=== PATIENT | female | born 1960 | race African-American/Black ===

== ENCOUNTER 2016-04-17 09:10 | Outpatient (CLI) | END 2016-04-17 09:11 | disposition home or self-care (01) ==

== ENCOUNTER 2016-04-29 11:21 | Emergency (ER) | payer OTHER ==
[2016-04-29] MEDS ORDERED: MAG HYDROX/AL HYDROX/SIMETH 30 ML UDC PO STA (12:34)
[2016-04-29] MEDS ORDERED: LIDOCAINE VISCOUS 2% 15 ML UDC MM STA (12:34)
[2016-04-29] MEDS ORDERED: MAG HYDROX/AL HYDROX/SIMETH 30 ML UDC ONE (12:37)
[2016-04-29] MEDS ORDERED: LIDOCAINE VISCOUS 2% 15 ML UDC MM ONE (12:37)
[2016-04-29] MEDS ORDERED: diltiaZEM 30 MG TABLET PO STA (12:58)
[2016-04-29] MEDS ORDERED: diltiaZEM 30 MG TABLET PO ONE (13:22)
== END 2016-04-29 14:42 | disposition home or self-care (01) ==
DX: R07.89 Other chest pain (principal); K21.9 Gastro-esophageal reflux disease without esophagitis; Z85.3 Personal history of malignant neoplasm of breast
CPT/HCPCS: 36415; 71020; 80053; 83690; 84484; 85025; 85379; 93005; 93010; 99283; 99284; A9270

== ENCOUNTER 2016-12-14 14:48 | Outpatient (CLI) | payer OTHER ==
--- NOTE | 2016-12-14 21:50 | MRI Report ---
EXAM: MRI BRAIN WITHOUT CONTRAST EXAM DATE: 12/14/2016 03:59 PM. CLINICAL HISTORY: 56-year-old woman with headache and hypertension. COMPARISON: 05/06/2009. TECHNIQUE: Multiplanar, multisequence T1-weighted and fluid-sensitive MR sequences of the brain were performed. Sequences optimized for routine evaluation. Other: None. IV Contrast: None. FINDINGS: Parenchyma: No evidence of acute infarct on diffusion weighted sequence. The parenchyma demonstrates several punctate foci of nonspecific FLAIR hyperintensity in the deep cerebral white matter, similar to the 2009 exam and a common finding in this age group. No evidence of prior hemorrhage on susceptib ility weighted sequence. Pituitary: Unremarkable. Ventricles and Extra-axial Spaces: Ventricles are symmetric and normal in size for age. Extra-axial s paces are unremarkable. Orbits: Unremarkable. Sinuses: Paranasal sinuses and mastoid air cells are clear. Major Vascular Flow Voids: Intact. IMPRESSION: 1. No acute intracranial abnormality. Specifically, no evidence of acute infarct, hemorrhage, or mass lesion. 2. Minimal white matter changes, similar to the 05/06/2009 exam and a common finding in this age grou p. Findings may reflect sequelae of chronic small vessel ischemic disease or history of headaches. [facility] Referring Provider Line: [phone] SITE ID: [id number]
== END 2016-12-14 14:49 | disposition home or self-care (01) ==
LOC: DI 14:48
PROVIDERS: ATTEND Registered Nurse Diabetes Educator
DX: R51 Headache (principal); Z85.3 Personal history of malignant neoplasm of breast
CPT/HCPCS: 70551

== ENCOUNTER 2017-01-20 07:06 | Emergency (ER) | payer OTHER ==
[2017-01-20] MEDS ORDERED: SODIUM CHLORIDE FLUSH 0.9% 10 ML SYRINGE IVP ONE (07:17)
[2017-01-20 07:26] LABS: BASOPHILS % (AUTO) 0.8 %; EOSINOPHILS # (AUTO) 0.1 10^3/uL (0.0-0.7); EOSINOPHILS % (AUTO) 2.2 %; HCT - HEMATOCRIT 37.2 % (37.0-47.0); HGB - HEMOGLOBIN 12.6 g/dL (12.0-16.0); LYMPHOCYTES # (AUTO) 1.3 10^3/uL (1.5-3.5); MEAN CORPUSCULAR HEMOGLOBIN 29.6 pg (27.0-31.0); MEAN CORPUSCULAR HGB CONC 33.7 g/dL (32.0-36.0); MEAN CORPUSCULAR VOLUME 87.7 fL (81.0-99.0); MONOCYTES # (AUTO) 0.4 10^3/uL (0.0-1.0); MONOCYTES % (AUTO) 11.1 %; NEUTROPHILS # (AUTO) 1.5 10^3/uL (1.5-6.6); NEUTROPHILS % (AUTO) 46.9 %; RED BLOOD COUNT 4.24 10^6/uL (4.20-5.40); RED CELL DISTRIBUTION WIDTH 13.3 % (12.0-15.0); UNCORRECTED WHITE BLOOD COUNT 3.2 x10^3/uL; WHITE BLOOD COUNT 3.2 x10^3/uL (4.8-10.8)
[2017-01-20] MEDS ORDERED: ASPIRIN CHEW 81 MG TABLET ONE (07:26)
[2017-01-20] MEDS ORDERED: SODIUM CHLORIDE 0.9% 1,000 ML IV ONE (07:26)
[2017-01-20] MEDS ORDERED: ASPIRIN CHEW 81 MG TABLET PO STA (07:26)
[2017-01-20] MEDS ORDERED: NITROGLYCERIN SL 0.4 MG TABLET SL STA (07:27)
--- NOTE | 2017-01-20 07:30 | ED Physician Documentation ---
History of Present Illness - Stated complaint Stated Complaint: CHEST PAIN - Chief complaint Chief Complaint: Cardiac - Additonal information Additional information: hx from pt 57 f pmhx HTN lipids DM and fhx CAD to ER today with waxing and waning cp for 4 days described as a pressure to ant chest rad to back and right arm, associated soa nausea sweats tingling legs too has had one prior cath at [facility] which was reportedly normal presently 09/22 Review of Systems Constitutional: reports: Sweats. denies: Fever, Chills Cardiac: reports: Chest pain / pressure Respiratory: denies: Dyspnea GI: reports: Nausea. 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: Endometriosis, Fibroids, 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 - Past Surgical History Past Surgical History: Yes /MARKETING SERVICES VICE PRESIDENT: Tubal ligation, Hysterectomy, Mastectomy - Present Medications Home Medications: Ambulatory Orders Medication Instructions Recorded Confirmed No Known Home Medications [No 01/20/17 01/20/17 Known Home Medications] - Allergies Allergies/Adverse Reactions: Allergies Allergy/AdvReac Type Severity Reaction Status Date / Time No Known Drug Allergies Allergy Verified 01/20/17 07:14 - Social History Does the pt smoke?: No Smoking Status: Never smoker Does the pt drink ETOH?: Yes Does the pt have substance abuse?: No - Immunizations Immunizations are current?: Yes - POLST Patient has POLST: No PD ED PE NORMAL - Vitals Vital signs reviewed: Yes - General General: Alert and oriented X 3 - HEENT HEENT: PERRL - Neck Neck: Supple, no meningeal sign - Cardiac Cardiac: RRR - Respiratory Respiratory: No respiratory distress, Clear bilaterally - Abdomen Abdomen: Soft, Non tender - Derm Derm: Normal color - Extremities Extremities: No deformity, Normal ROM s pain, No edema - Neuro Neuro: Alert and oriented X 3 Results - Vitals Vitals: Vital Signs - 24 hr 01/20/17 07:11 Temperature 36.5 C Heart Rate 69 Respiratory 16 Rate Blood Pressure 136/82 H O2 Saturation 98 Oxygen O2 Source Room air - EKG (time done) 0714 Rate: Rate (enter#) Rhythm: NSR [place]: Normal Intervals: Normal SD Ischemia: ST elevation c/w ischemia (V1 and ronnie V2 V3) Compare to prior EKG: Changed from prior EKG (changed from Apr 2016, sig diff from her prior LVH / repol patter - will send old EKG to [facility] as well) - Labs Labs: Laboratory Tests 01/20/17 01/20/17 01/20/17 07:18 07:18 07:18 WBC 3.2 L RBC 4.24 Hgb 12.6 Hct 37.2 MCV 87.7 MCH 29.6 MCHC 33.7 RDW 13.3 Plt Count 167 MPV 8.0 Neut # 1.5 Lymph # 1.3 L [place] # 0.4 Eos # 0.1 Baso # 0.0 Absolute Nucleated RBC 0.00 Nucleated RBC % 0.0 Sodium 138 Potassium 3.4 L Chloride 103 Carbon Dioxide 25 Anion Gap 10.0 BUN 17 Creatinine 0.8 Estimated GFR (MDRD) 90 Glucose 114 H Calcium 8.9 Total Bilirubin 1.2 H AST 23 ALT 18 Alkaline Phosphatase 50 Troponin I < 0.04 Total Protein 7.1 Albumin 4.0 Globulin 3.1 Albumin/Globulin Ratio 1.3 Lipase 20 L PD MEDICAL DECISION MAKING - ED course ED course: STEMI protocol activated spoke to [facility] ER Dr Castillo and cardio Dr Ford gave asa nitro heparin per Dr Ford no lopressor for ant STEMI and no plavix labs pending at time of dc, CXR ordered but did not get done prior to EMS arriving for transfer Departure - Departure Disposition: 02 Transfer Acute Care Hosp Clinical Impression: STEMI (ST elevation myocardial infarction) Qualifiers: Involved coronary artery: unspecified coronary artery Qualified Code(s): I21.3 - ST elevation (STEMI) myocardial infarction of unspecified site
[2017-01-20] MEDS ORDERED: HEPARIN 5,000 UNIT/ML VIAL ONE (07:32)
[2017-01-20] MEDS ORDERED: HEPARIN 25000UNITS/500ML (D5W) 25,000 UNIT/500 ML BAG IV ONE (07:32)
[2017-01-20] MEDS ORDERED: HEPARIN 25000UNITS/500ML (D5W) 25,000 UNIT/500 ML BAG IV STA (07:33)
[2017-01-20] MEDS ORDERED: HEPARIN 5,000 UNIT/ML VIAL IVP STA (07:33)
[2017-01-20] MEDS ORDERED: NITROGLYCERIN SL 0.4 MG TABLET SL ONE (07:38)
[2017-01-20 07:40] LABS: ALBUMIN/GLOBULIN RATIO 1.3 (1.0-2.2); BILIRUBIN,TOTAL 1.2 mg/dL (0.2-1.0); CALCIUM 8.9 mg/dL (8.5-10.3); CREATININE 0.8 mg/dL (0.4-1.0); POTASSIUM 3.4 mmol/L (3.5-5.0); TOTAL PROTEIN 7.1 g/dL (6.7-8.2)
[2017-01-20 08:16] VITALS: BP 148/75
== END 2017-01-20 07:34 | disposition short-term general hospital (02) ==
LOC: ED 07:06
DX: I21.3 ST elevation (STEMI) myocardial infarction of unspecified site (principal); I10 Essential (primary) hypertension; Z82.49 Family history of ischemic heart disease and other diseases of the circulatory system; E78.5 Hyperlipidemia, unspecified; K21.9 Gastro-esophageal reflux disease without esophagitis; Z85.3 Personal history of malignant neoplasm of breast; Z90.10 Acquired absence of unspecified breast and nipple; Z87.42 Personal history of other diseases of the female genital tract
CPT/HCPCS: 36415; 80053; 83690; 84484; 85025; 93005; 96374; 96376; 99284; A9270

== ENCOUNTER 2017-01-20 07:47 | Outpatient (CLI) | payer OTHER | END 2017-01-20 07:48 | disposition short-term general hospital (02) | LOC: EMS 07:47 | PROVIDERS: ATTEND Surgery | DX: R07.9 Chest pain, unspecified (principal); R51 Headache | CPT/HCPCS: A0425; A0426 ==

== ENCOUNTER 2017-04-02 10:28 | Outpatient (CLI) | payer OTHER ==
--- NOTE | 2017-04-02 12:01 | Ultrasound Report ---
EXAM: ABDOMEN ULTRASOUND LIMITED, RUQ EXAM DATE: 04/02/2017 11:25 AM. CLINICAL HISTORY: EPIGASTRIC PAIN, ELEVATED BILLIRUBIN. COMPARISON: Abdominal ultrasound 02/05/2016. TECHNIQUE: Real-time scanning was performed with static images obtained. FINDINGS: Liver: Normal in size and echotexture. 14.1 cm. Main portal vein flow: Hepatopetal. Gallbladder: Normal. No stones, wall thickening, or sonographic Del Cid's sign. Biliary System: CBD measures 2 mm. No intrahepatic or extrahepatic ductal dilatation. Other: None. IMPRESSION: Normal. No cholelithiasis or cholecystitis. [facility] Referring Provider Line: [phone] SITE ID: [id number]
== END 2017-04-02 10:29 | disposition home or self-care (01) ==
LOC: DI 10:28
PROVIDERS: ATTEND Nurse Anesthetist, Certified Registered
DX: R10.13 Epigastric pain (principal); R17 Unspecified jaundice
CPT/HCPCS: 76705

== ENCOUNTER 2017-06-13 08:47 | Outpatient (CLI) | payer OTHER ==
--- NOTE | 2017-06-13 16:07 | Nuclear Medicine Report ---
EXAM: BONE SCAN EXAM DATE: 06/13/2017 03:01 PM. CLINICAL HISTORY: MALIGNANT NEOPLASM OF UNSPECIFIED SITE. History of breast cancer. New spine pain mo st notably mid thoracic region. COMPARISON: CT abdomen/pelvis 11/05/2015. TECHNIQUE: Following the intravenous administration of 31.6 mCi of technetium 99m MDP and an appropri ate delay, a whole-body scan was performed in anterior and posterior projections. Site-specific spot views of the region of interest were obtained in various projections. FINDINGS: Normal renal radiotracer uptake and bladder activity. Normal soft tissue activity. Overall normal osseous uptake. No suspicious focal uptake. IMPRESSION: 1. No convincing scintigraphic evidence of osseous metastasis. [facility] Referring Provider Line: [phone] SITE ID: [id number]
== END 2017-06-13 08:48 | disposition home or self-care (01) ==
LOC: DI 08:47
PROVIDERS: ATTEND Registered Nurse Diabetes Educator
DX: M54.6 Pain in thoracic spine (principal); Z85.3 Personal history of malignant neoplasm of breast
CPT/HCPCS: 78306; A9503

== ENCOUNTER 2017-06-26 10:49 | Outpatient (CLI) | payer OTHER ==
[2017-06-26] MEDS ORDERED: SINCALIDE 5 MCG VIAL ONE (12:11)
[2017-06-26] MEDS ORDERED: SINCALIDE 1.3 MCG in SODIUM CHLORIDE 0.9% 50 ML IV ONE (14:11)
--- NOTE | 2017-06-26 16:24 | Nuclear Medicine Report ---
EXAM: HEPATOBILIARY SCAN WITH CCK/KINEVAC ADMINISTRATION EXAM DATE: 06/26/2017 11:25 AM. CLINICAL HISTORY: EPIGASTRIC PAIN. COMPARISON: 04/02/2017. TECHNIQUE: Following the intravenous administration of 5.4 mCi of Tc99m Mebrofenin, a hepatobiliary s can was done centered on the liver and gallbladder in multiple sequential images and projections. Following the intravenous administration of 1.3 mcg of CCK/ Kinevac over the course of approximately 60 minutes, dynamic imaging was done and the gallbladder ejection fraction was calculated. FINDINGS: Normal extraction of tracer from the blood pool indicating normal hepatocellular function. The liver size and shape is grossly within normal limits. There is activity visualized within the bile ducts, gallbladder, and small bowel within the first vickie r. With CCK administration, the gallbladder demonstrates an effective contraction. The gallbladder eject ion fraction is calculated to be 78%, well above the lower limit of normal of 38% for a 60-minute inj ection. Positive for enterogastric bile reflux. IMPRESSION: 1. Patent cystic duct. 2. Patent common bile duct. 3. Negative for acute or chronic cholecystitis. 4. Positive for enterogastric bile reflux. 5. Gallbladder ejection fraction of 78%. [facility] Referring Provider Line: [phone] SITE ID: [id number]
== END 2017-06-26 10:50 | disposition home or self-care (01) ==
LOC: DI 10:49
PROVIDERS: ATTEND Nurse Anesthetist, Certified Registered
DX: K31.89 Other diseases of stomach and duodenum (principal)
CPT/HCPCS: 78227; A9537; J7040

== ENCOUNTER 2017-07-11 09:10 | Day surgery (SDC) | payer OTHER ==
[~2017-07-11 09:10] MED LIST: MIDAZOLAM 2 MG/2 ML VIAL IVP ONE; fentaNYL 250 MCG/5 ML VIAL IVP ONE
[2017-07-11] MEDS ORDERED: LACTATED RINGERS 1,000 ML IV ONE (09:21)
--- NOTE | 2017-07-11 10:28 | HISTORY & PHYSICAL EXAMINATION ---
HPI - History of Present Illness HPI Comment/Other: Patient is here for colonoscopy for rectal bleeding. Current Meds: HYDROCHLOROTHIAZIDE 12.5 MG ORAL CAPSULE (HYDROCHLOROTHIAZIDE) Take one tablet by mouth every morning Past Medical History: Reviewed history and no changes required: Chest Pain Heart murmur HTN Hyperlipidemia Sleep Apnea CPAP Machine Heartburn Acid Reflux Cancer Past Surgical History: Reviewed history and no changes required: Bilateral Mastectomy 2007 Tubal ligation 2003 Hysterectomy 2004 Family History Summary: Reviewed history and no changes required: 06/11/2017 Social History: Reviewed history and no changes required: Risk Factors: Smoked Tobacco Use: Never smoker Drug use: no Alcohol use: yes Type: wine Drinks per day: <1 Exercise: yes Times per week: 7 Type of Exercise: walking Problems were reviewed with the patient during this visit. Medications were reviewed with the patient during this visit. Allergies were reviewed with the patient during this visit. Allergies: * FLUORQUINOLINE (Critical) CIPRO (Critical) * LEVOFLICAN FLOURIDE (Critical) Physical Exam General: well developed, well nourished, in no acute distress Lungs: clear bilaterally to A & P Heart: regular rate and rhythm, S1, S2 without murmurs, rubs, gallops, or clicks Abdomen: bowel sounds positive; abdomen soft and non-tender without masses, organomegaly, or hernias noted Pulses: pulses normal in all 4 extremities Extremities: no clubbing, cyanosis, edema, or deformity noted with normal full range of motion of all joints Cervical Nodes: no significant adenopathy Psych: alert and cooperative; normal mood and affect; normal attention span and concentration Impression & Recommendations: Problem # 1: Rectal bleeding Improved since patient last seen in office. Will proceed with colonoscopy. 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: positive: Endometriosis, Fibroids, 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 MRSA Hx?: No - Past Surgical History /GAME TESTER: positive: Tubal ligation, Hysterectomy, Mastectomy Social & Family Hx - Social History Does the pt smoke?: No Smoking Status: Never smoker Does the pt drink ETOH?: Yes Does the pt have substance abuse?: No - POLST Patient has POLST: No Meds/Allgy - Home Medications Home Medications: Ambulatory Orders Medication Instructions Recorded Confirmed hydroCHLOROthiazide [Hydrodiuril] 12.5 mg PO DAILY 07/11/17 07/11/17 - Allergies Allergies/Adverse Reactions: Allergies Allergy/AdvReac Type Severity Reaction Status Date / Time ciprofloxacin [From Cipro] Allergy Anaphylaxis Verified 07/11/17 09:48 levofloxacin Allergy Anaphylaxis Verified 07/11/17 09:49 Exam - Vital Signs Vital Signs: Vital Signs x48h Temp Pulse Resp BP Pulse Ox 07/11/17 09:27 36.6 C 76 16 143/85 H 96
[2017-07-11] MEDS ORDERED: fentaNYL 250 MCG/5 ML VIAL IVP ONE (10:33)
[2017-07-11] MEDS ORDERED: MIDAZOLAM 2 MG/2 ML VIAL IVP ONE (10:33)
[2017-07-11 10:55] VITALS: BP 113/63
== END 2017-07-11 09:11 | disposition home or self-care (01) ==
LOC: SDS 09:10
PROVIDERS: ATTEND Surgery
PROC: 0DJD8ZZ Inspection of Lower Intestinal Tract, Via Natural or Artificial Opening Endoscopic (ICD-10-PCS; principal; 2017-07-11 10:15)
DX: K92.1 Melena (principal); K64.4 Residual hemorrhoidal skin tags; K64.8 Other hemorrhoids; I10 Essential (primary) hypertension
CPT/HCPCS: 45378; J3010; J7120

== ENCOUNTER 2017-12-06 01:03 | Emergency (ER) | payer OTHER ==
[2017-12-06 01:31] LABS: BASOPHILS % (AUTO) 0.6 %; EOSINOPHILS # (AUTO) 0.1 10^3/uL (0.0-0.7); EOSINOPHILS % (AUTO) 1.7 %; HGB - HEMOGLOBIN 13.4 g/dL (12.0-16.0); LYMPHOCYTES # (AUTO) 1.8 10^3/uL (1.5-3.5); LYMPHOCYTES % (AUTO) 38.2 %; MEAN CORPUSCULAR HEMOGLOBIN 30.3 pg (27.0-31.0); MEAN CORPUSCULAR HGB CONC 34.9 g/dL (32.0-36.0); MEAN CORPUSCULAR VOLUME 86.9 fL (81.0-99.0); MEAN PLATELET VOLUME 7.8 fL (7.9-10.8); MONOCYTES # (AUTO) 0.5 10^3/uL (0.0-1.0); MONOCYTES % (AUTO) 11.2 %; NEUTROPHILS # (AUTO) 2.2 10^3/uL (1.5-6.6); NEUTROPHILS % (AUTO) 48.3 %; PLT - PLATELET COUNT 196 10^3/uL (130-450); RED BLOOD COUNT 4.43 10^6/uL (4.20-5.40); WHITE BLOOD COUNT 4.6 x10^3/uL (4.8-10.8)
[2017-12-06 01:40] LABS: ALBUMIN 4.1 g/dL (3.2-5.5); ALBUMIN/GLOBULIN RATIO 1.2 (1.0-2.2); BILIRUBIN,TOTAL 1.3 mg/dL (0.2-1.0); CALCIUM 9.4 mg/dL (8.5-10.3); CREATININE 0.8 mg/dL (0.4-1.0); TOTAL PROTEIN 7.4 g/dL (6.7-8.2)
--- NOTE | 2017-12-06 02:02 | XRAY Report ---
Reason: chest pain Procedure Date: 12/06/2017 Accession Number: [id number] / [id number] Procedure: XR - Chest 1 View X-Ray CPT Code: 32849 FULL RESULT: EXAM: CHEST RADIOGRAPHY EXAM DATE: 12/06/2017 01:35 AM. CLINICAL HISTORY: COMPARISON: CHEST 2 VIEW PA/LAT 04/29/2016. TECHNIQUE: 1 view. FINDINGS: Lungs/Pleura: No focal opacities evident. No pleural effusion. No pneumothorax. Mediastinum: Within exam limitations, the cardiomediastinal contour is normal. Other: None. IMPRESSION: Normal single view chest. [facility]
--- NOTE | 2017-12-06 02:49 | ED Physician Documentation ---
History of Present Illness - Stated complaint Stated Complaint: CP/NAUSEA/RAYO - Chief complaint Chief Complaint: Cardiac - History obtained from History obtained from: Patient - History of Present Illness Timing: Enter time (05:30), Yesterday Improved by: no ameliorating factors Worsened by: no exacerbating factors - Additonal information Additional information: woken at 5:30 AM with chest pain, RAYO, facial numbness, nausea. symptoms fluctuated during the day and chest pain has resolved, presents due to worsening bilateral frontoparietal headache, vice-like quality. Review of Systems Constitutional: denies: Fever, Chills, Sweats Eyes: reports: Reviewed and negative Ears: reports: Reviewed and negative Throat: reports: Reviewed and negative Cardiac: reports: Chest pain / pressure. denies: Palpitations, Pedal edema Respiratory: reports: Reviewed and negative GI: reports: Nausea. denies: Vomiting Neurologic: reports: Numbness (bilateral facial numbness), Headache. 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, Fibroids, 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 - Past Surgical History Past Surgical History: Yes /TOBACCO WETTER: Tubal ligation, Hysterectomy, Mastectomy - Present Medications Home Medications: Ambulatory Orders Medication Instructions Recorded Confirmed hydroCHLOROthiazide [Hydrodiuril] 12.5 mg PO DAILY 07/11/17 07/11/17 Ondansetron Odt [Zofran] 4 mg TL Q6H PRN #14 tablet 12/06/17 - Allergies Allergies/Adverse Reactions: Allergies Allergy/AdvReac Type Severity Reaction Status Date / Time ciprofloxacin [From Cipro] Allergy Anaphylaxis Verified 12/06/17 01:12 levofloxacin Allergy Anaphylaxis Verified 12/06/17 01:12 - Social History Does the pt smoke?: No Smoking Status: Never smoker Does the pt drink ETOH?: Yes Does the pt have substance abuse?: No - Immunizations Immunizations are current?: Yes - POLST Patient has POLST: No PD ED PE NORMAL - Vitals Vital signs reviewed: Yes - General General: Alert and oriented X 3, No acute distress, Well developed/nourished - HEENT HEENT: PERRL, EOMI, Moist mucous membranes - Neck Neck: Supple, no meningeal sign - Cardiac Cardiac: RRR, No murmur - Respiratory Respiratory: No respiratory distress, Clear bilaterally - Abdomen Abdomen: Soft, Non tender - Derm Derm: Normal color, Warm and dry - Neuro Neuro: Alert and oriented X 3, 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 bus operator 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, No motor deficit, No sensory deficit, Normal speech Eye Opening: Spontaneous Motor: Obeys Commands Verbal: Oriented GCS Score: 15 Results - Vitals Vitals: Oxygen O2 Source Room air - EKG (time done) No standard instances Rate: Rate (enter#) (59) Rhythm: NSR Ethel: LAD Intervals: Normal [place] QRS: LVH Ischemia: Normal ST segments - Labs Labs: Laboratory Tests 12/06/17 12/06/17 12/06/17 01:20 01:20 01:20 WBC 4.6 L RBC 4.43 Hgb 13.4 Hct 38.5 MCV 86.9 MCH 30.3 MCHC 34.9 RDW 13.0 Plt Count 196 MPV 7.8 L Neut # (Auto) 2.2 Lymph # (Auto) 1.8 [place] # (Auto) 0.5 Eos # (Auto) 0.1 Baso # (Auto) 0.0 Absolute Nucleated RBC 0.00 Nucleated RBC % 0.0 Sodium 136 Potassium 3.1 L Chloride 104 Carbon Dioxide 27 Anion Gap 5.0 L BUN 12 Creatinine 0.8 Estimated GFR (MDRD) 90 Glucose 109 H Calcium 9.4 Total Bilirubin 1.3 H AST 25 ALT 20 Alkaline Phosphatase 59 Troponin I < 0.04 Total Protein 7.4 Albumin 4.1 Globulin 3.3 Albumin/Globulin Ratio 1.2 Lipase 21 L - Rads (name of study) chest xray Radiology: Prelim report reviewed, See rad report PD MEDICAL DECISION MAKING - ED course Complexity details: reviewed old records, reviewed results, re-evaluated patient , considered differential, d/w patient ED course: JUAN records indicate outpatient visits include 10/14 ([facility]), 10/24 ( [facility] cardiology), 10/31 ([facility] neurology), 11/14 ([facility]), 11/26 ([facility] cardiology), and 12/04 ([facility]; this visit's notes indicates she had lesser occipital nerve block in office and discussion regarding possible greater occipital nerve block on next visit. Patient says she did not have any noticeable relief with the nerve block). Outpatient w/u ( for symptoms similar to tonight's ED presentation) has included MRI brain and neck. - Sepsis Event Vital Signs: Oxygen O2 Source Room air Departure - Departure Disposition: 01 Home, Self Care Clinical Impression: Chest pain, Headache, Hypokalemia Condition: Good Instructions: ED Chest Pain Atypical Unkn Cause, ED Cephalgia Unspecified, ED Potassium Deficiency Follow-Up: Elie Chaudhari ARNP [Primary Care Provider] - Within 1 week Prescriptions: Ondansetron Odt [Zofran] 4 mg TL Q6H PRN #14 tablet PRN Reason: Nausea / Vomiting Discharge Date/Time: 12/06/17 04:51
[2017-12-06] MEDS ORDERED: ACETAMINOPHEN 325 MG TABLET PO STA (03:25)
[2017-12-06] MEDS ORDERED: ONDANSETRON ODT 4 MG TABLET TL STA (03:25)
[2017-12-06] MEDS ORDERED: POTASSIUM BICARB 25 MEQ TABLET PO STA (03:25)
[2017-12-06 04:52] VITALS: BP 153/89
== END 2017-12-06 04:51 | disposition home or self-care (01) ==
LOC: ED 01:03
DX: R07.9 Chest pain, unspecified (principal); R51 Headache; E87.6 Hypokalemia; I11.9 Hypertensive heart disease without heart failure; I51.7 Cardiomegaly; R94.31 Abnormal electrocardiogram [ECG] [EKG]
CPT/HCPCS: 36415; 71045; 80053; 83690; 84484; 85025; 93005; 99283; 99284; A9270; Q0162

== ENCOUNTER 2017-12-21 19:41 | Outpatient (CLI) | payer OTHER ==
--- NOTE | 2017-12-22 12:44 | Ultrasound Report ---
Reason: LIMB PAIN LEG Procedure Date: 12/21/2017 Accession Number: [id number] / [id number] Procedure: US - Duplex Lwr Ext Arterial Bilat CPT Code: FULL RESULT: EXAM: Bilateral Lower Extremity Arterial Doppler Ultrasound EXAM DATE: 12/21/2017 08:52 PM. CLINICAL HISTORY: Bilateral leg pain. COMPARISON: None. TECHNIQUE: Real-time sonographic vascular imaging was performed by the sexual assault nurse, utilizing color-flow, Doppler flow, and spectral analysis. Multiple policy services representative static images were saved for review. FINDINGS: Patent vessels by grayscale and color Doppler ultrasound with preserved waveforms. Right Lower Extremity: TAXI DANCER: PSV 87.8 cm/sec. Triphasic waveform. PSFA: PSV 97.8 cm/sec. Triphasic waveform. MSFA: PSV 80.1 cm/sec. Triphasic waveform. DSFA: PSV 62.4 cm/sec. Triphasic waveform. PFA: PSV 52.4 cm/sec. Triphasic waveform. POP: PSV 54.4 cm/sec. Triphasic waveform. ISA: PSV 53.1 cm/sec. Triphasic waveform. TRACER BULLET SECTION SUPERVISOR: PSV 79.9 cm/sec. Triphasic waveform. MARILU: PSV 45.4 cm/sec. Triphasic waveform. DPA: PSV 32.6 cm/sec. Triphasic waveform. Left Lower Extremity: TAXI DANCER: PSV 94 cm/sec. Triphasic waveform. PSFA: PSV 108.5 cm/sec. Triphasic waveform. MSFA: PSV 120 cm/sec. Triphasic waveform. DSFA: PSV 100.3 cm/sec. Triphasic waveform. PFA: PSV 60.8 cm/sec. Triphasic waveform. POP: PSV 63.4 cm/sec. Triphasic waveform. ISA: PSV 57.9 cm/sec. Triphasic waveform. TRACER BULLET SECTION SUPERVISOR: PSV 136.1 cm/sec. Triphasic waveform. MARILU: PSV 50.8 cm/sec. Triphasic waveform. DPA: PSV 47.7 cm/sec. Triphasic waveform. IMPRESSION: Normal bilateral three-vessel arterial supply to the ankle with good bilateral dorsalis pedis pulses. [facility]
== END 2017-12-21 19:42 | disposition home or self-care (01) ==
LOC: DI 19:41
PROVIDERS: ATTEND Surgery
DX: M79.606 Pain in leg, unspecified (principal)
CPT/HCPCS: 93925

== ENCOUNTER 2018-02-23 15:49 | Emergency (ER) | payer OTHER ==
[2018-02-23 16:17] LABS: BASOPHILS % (AUTO) 0.8 %; EOSINOPHILS # (AUTO) 0.1 10^3/uL (0.0-0.7); EOSINOPHILS % (AUTO) 1.5 %; HGB - HEMOGLOBIN 13.6 g/dL (12.0-16.0); LYMPHOCYTES # (AUTO) 1.3 10^3/uL (1.5-3.5); LYMPHOCYTES % (AUTO) 31.6 %; MEAN CORPUSCULAR HEMOGLOBIN 29.7 pg (27.0-31.0); MEAN CORPUSCULAR HGB CONC 33.9 g/dL (32.0-36.0); MEAN CORPUSCULAR VOLUME 87.5 fL (81.0-99.0); MEAN PLATELET VOLUME 7.7 fL (7.9-10.8); MONOCYTES # (AUTO) 0.4 10^3/uL (0.0-1.0); MONOCYTES % (AUTO) 9.5 %; NEUTROPHILS # (AUTO) 2.4 10^3/uL (1.5-6.6); NEUTROPHILS % (AUTO) 56.6 %; PLT - PLATELET COUNT 200 10^3/uL (130-450); RED BLOOD COUNT 4.59 10^6/uL (4.20-5.40); RED CELL DISTRIBUTION WIDTH 12.8 % (12.0-15.0); WHITE BLOOD COUNT 4.2 x10^3/uL (4.8-10.8)
[2018-02-23 16:20] LABS: BILIRUBIN,URINE NEGATIVE (NEGATIVE); CLARITY,URINE CLEAR (CLEAR); GLUCOSE, URINE (UA) NEGATIVE (NEGATIVE); KETONES,URINE (UA) NEGATIVE (NEGATIVE); LEUKOCYTE ESTERASE, URINE NEGATIVE (NEGATIVE); NITRITE,URINE NEGATIVE (NEGATIVE); OCCULT BLOOD,URINE SMALL (NEGATIVE); PH,URINE 6.5 PH (5.0-7.5); PROTEIN,URINE NEGATIVE (NEGATIVE); UROBILINOGEN,URINE 0.2 (NORMAL) E.U./dL (NORMAL)
[2018-02-23 16:26] LABS: BACTERIA,URINE Rare /HPF (None Seen); SQUAMOUS EPITHELIAL CELL,UR RARE Squamous (<= Few)
[2018-02-23 16:31] LABS: ALBUMIN 4.1 g/dL (3.2-5.5); ALBUMIN/GLOBULIN RATIO 1.2 (1.0-2.2); BILIRUBIN,TOTAL 1.5 mg/dL (0.2-1.0); CREATININE 1.1 mg/dL (0.4-1.0); TOTAL PROTEIN 7.5 g/dL (6.7-8.2)
--- NOTE | 2018-02-23 18:04 | ED Physician Documentation ---
PD HPI ABD PAIN - Stated complaint Stated Complaint: ABD/BACK PX - Chief complaint Chief Complaint: Abd Pain - History obtained from History obtained from: Patient - History of Present Illness Timing - onset: How many weeks ago (2) Timing - duration: Weeks (2) Timing - details: Gradual onset, Still present, Waxing and waning Quality: Cramping, Aching. No: Fullness/distended Location: All over / everywhere (but more on left side and feeling lower back/"behind bladder") Radiation: Lower back Improved by: BM. No: Eating Worsened by: No: Eating Associated symptoms: No: Fever, Nausea, Vomiting, Diarrhea, Constipation (has had formed stools daily with only slight need for pushing) Similar symptoms before: Diagnosis (she says feels similar to episode of diverticulitis she had in 2016.) Recently seen: Not recently seen Review of Systems Constitutional: denies: Fever, Chills, Myalgias Nose: denies: Rhinorrhea / runny nose, Congestion Throat: denies: Sore throat Cardiac: denies: Chest pain / pressure Respiratory: denies: Cough GI: reports: Abdominal Pain. 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: Endometriosis, Fibroids, 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 - Past Surgical History Past Surgical History: Yes /SECOND CLASS WELDER: Tubal ligation, Hysterectomy, Mastectomy - Present Medications Home Medications: Ambulatory Orders Medication Instructions Recorded Confirmed hydroCHLOROthiazide [Hydrodiuril] 12.5 mg PO DAILY 07/11/17 07/11/17 Atenolol 25 mg 02/23/18 Docusate Sodium 100 mg PO DAILY #30 capsule 02/23/18 Naproxen 375 mg PO BID #20 tablet 02/23/18 Nortriptyline [Pamelor] 10 mg 02/23/18 Ondansetron Odt [Zofran] 4 mg TL Q6H PRN #10 tablet 02/23/18 - Allergies Allergies/Adverse Reactions: Allergies Allergy/AdvReac Type Severity Reaction Status Date / Time ciprofloxacin [From Cipro] Allergy Anaphylaxis Verified 12/06/17 01:12 levofloxacin Allergy Anaphylaxis Verified 11/11/18 15:54 - Social History Does the pt smoke?: No Smoking Status: Never smoker Does the pt drink ETOH?: Yes Does the pt have substance abuse?: No - Immunizations Immunizations are current?: Yes - POLST Patient has POLST: No PD ED PE NORMAL - Vitals Vital signs reviewed: Yes - General General: Alert and oriented X 3, No acute distress, Well developed/nourished - HEENT HEENT: Pharynx benign - Neck Neck: Supple, no meningeal sign, No adenopathy - Cardiac Cardiac: RRR, No murmur - Respiratory Respiratory: Clear bilaterally - Abdomen Abdomen: Normal bowel sounds, Soft, Non distended, No organomegaly, Other (mild tenderness without guarding on left abd and suprapubic area. ) - Female Female : Deferred - Rectal Rectal: Deferred - Back Back: No CVA TTP - Derm Derm: Normal color, Warm and dry - Extremities Extremities: No tenderness to palpate, Normal ROM s pain, No edema, No calf tenderness / cord - Neuro Neuro: Alert and oriented X 3, No motor deficit, Normal speech Results - Vitals Vitals: Vital Signs - 24 hr 02/23/18 02/23/18 02/23/18 15:52 19:10 20:33 Temperature 36.6 C 36.9 C Heart Rate 74 58 L 52 L Respiratory 20 14 16 Rate Blood Pressure 162/92 H 133/72 H 131/71 H O2 Saturation 100 99 100 Oxygen O2 Source Room air - Labs Labs: Laboratory Tests 02/23/18 02/23/18 02/23/18 16:13 16:13 16:16 WBC 4.2 L RBC 4.59 Hgb 13.6 Hct 40.1 MCV 87.5 MCH 29.7 MCHC 33.9 RDW 12.8 Plt Count 200 MPV 7.7 L Neut # (Auto) 2.4 Lymph # (Auto) 1.3 L [place] # (Auto) 0.4 Eos # (Auto) 0.1 Baso # (Auto) 0.0 Absolute Nucleated RBC 0.00 Nucleated RBC % 0.0 Sodium 134 L Potassium 3.6 Chloride 98 L Carbon Dioxide 29 Anion Gap 7.0 BUN 11 Creatinine 1.1 H Estimated GFR (MDRD) 62 L Glucose 107 H Calcium 9.0 Total Bilirubin 1.5 H AST 25 ALT 19 Alkaline Phosphatase 67 Total Protein 7.5 Albumin 4.1 Globulin 3.4 Albumin/Globulin Ratio 1.2 Lipase 19 L Urine Color YELLOW Urine Clarity CLEAR Urine pH 6.5 Ur Specific [place] <=1.005 Urine Protein NEGATIVE Urine Glucose (UA) NEGATIVE Urine Ketones NEGATIVE Urine Occult Blood SMALL H Urine Nitrite NEGATIVE Urine Bilirubin NEGATIVE Urine Urobilinogen 0.2 (NORMAL) Ur Leukocyte Esterase NEGATIVE Urine RBC 6-10 H Urine WBC 0-3 Ur Squamous Epith Cells RARE Squamous Urine Bacteria Rare Ur Microscopic Review INDICATED Urine Culture Comments NOT INDICATED - Rads (name of study) abd CT Radiology: Prelim report reviewed (see report; summary no acute process seen) PD MEDICAL DECISION MAKING - ED course Complexity details: reviewed results (no cause identified on labs/CT. she says feels like early diverticulitis that she has had in the past. Can treat with stool softener and NSAID. ), considered differential, d/w patient Departure - Departure Disposition: Home, Self Care Clinical Impression: Abdominal pain Qualifiers: Abdominal location: generalized Qualified Code(s): R10.84 - Generalized abdominal pain Condition: Stable Record reviewed to determine appropriate education?: Yes Instructions: ED Abdominal Pain Unkn Cause Follow-Up: Elie Chaudhari ARNP [Primary Care Provider] - Prescriptions: Docusate Sodium 100 mg PO DAILY #30 capsule Naproxen 375 mg PO BID #20 tablet Ondansetron Odt [Zofran] 4 mg TL Q6H PRN #10 tablet PRN Reason: Nausea / Vomiting Comments: The CT and blood tests and urine test did not show an obvious cause for your pain. We will presume there is some intestinal inflammation or irritation. I would suggest lots of fluids and stool softener once or twice daily for the next few days along with an anti-inflammatory naproxen twice daily for the next week. Recheck if not improved over the next 2-3 days and return sooner if worsening symptoms. Discharge Date/Time: 02/23/18 20:51
[2018-02-23] MEDS ORDERED: SODIUM CHLORIDE 0.9% 1,000 ML IV ONE (18:23)
[2018-02-23] MEDS ORDERED: KETOROLAC 60 MG/2 ML VIAL IVP STA (18:23)
[2018-02-23] MEDS ORDERED: ONDANSETRON 4 MG/2 ML VIAL IVP STA (18:23)
[2018-02-23] MEDS ORDERED: IOPAMIDOL-300 100 ML VIAL ONE (18:48)
[2018-02-23] MEDS ORDERED: IOPAMIDOL-300 100 ML VIAL IVP ONE (19:02)
--- NOTE | 2018-02-23 19:35 | CT Report ---
Reason: left and lower abd pain for a week, worsening Procedure Date: 02/23/2018 Accession Number: [id number] / [id number] Procedure: CT - Abdomen/Pelvis W/ CPT Code: FULL RESULT: EXAM: CT ABDOMEN AND PELVIS EXAM DATE: 02/23/2018 07:00 PM. CLINICAL HISTORY: Left and lower abd pain for a week, worsening. COMPARISONS: ABDOMEN/PELVIS W/ 11/05/2015 1:11 PM. TECHNIQUE: Routine helical CT imaging was performed through the abdomen and pelvis. IV contrast: ISOVUE 300 100mL. Enteric contrast: No. Reconstructions: Coronal and sagittal. In accordance with CT protocol optimization, one or more of the following dose reduction techniques were utilized for this exam: automated exposure control, adjustment of mA and/or KV based on patient size, or use of iterative reconstructive technique. FINDINGS: Lung Bases: Unremarkable. Liver: Normal. No masses. Gallbladder/Bile Ducts: Unremarkable. Spleen: Normal. Pancreas: Normal. Adrenal Glands: Normal. Kidneys: Normal. No masses or hydronephrosis. Peritoneal Cavity/Bowel: Normal. No free fluid, free air or adenopathy. No masses or acute inflammatory process. Pelvic Organs: Urinary bladder is empty. Vasculature: No aneurysms or other significant abnormality. Bones: No significant abnormality. Other: None. IMPRESSION: 1. No localizing inflammatory process. No CT finding to explain clinical symptoms. RADIA
[2018-02-23 20:34] VITALS: BP 131/71
== END 2018-02-23 20:51 | disposition home or self-care (01) ==
LOC: ED 15:49
DX: R10.84 Generalized abdominal pain (principal); I10 Essential (primary) hypertension
CPT/HCPCS: 36415; 74177; 80053; 81001; 83690; 85025; 96374; 96375; 99283; Q9967; 81003; 87086

== ENCOUNTER 2018-05-15 21:41 | Emergency (ER) | payer OTHER ==
--- NOTE | 2018-05-15 22:07 | ED Physician Documentation ---
PD HPI CHEST PAIN - Stated complaint Stated Complaint: CHEST PX - Chief complaint Chief Complaint: Cardiac - History obtained from History obtained from: Patient - History of Present Illness Timing - onset: Today Timing - onset during: Light activity Timing - details: Gradual onset, Still present, Waxing and waning Quality: Aching, Pain Location: Substernal, Left chest Radiation: Neck, Left upper extremity Worsened by: Inspiration. No: Movement, Palpation Associated symptoms: No: Shortness of air, Diaphoresis, General Weakness Similar symptoms before: No diagnosis (has had MRI brain, sounds like head angio/MRA, and heart evaluation with stress testing. MRI head was about 10 months ago. Presumed Dx migraines.) Recently seen: Not recently seen Review of Systems Constitutional: denies: Fever, Chills Eyes: denies: Decreased vision, Photophobia Ears: reports: Ear pain Nose: denies: Rhinorrhea / runny nose, Congestion Throat: denies: Dental pain / toothache, Sore throat Cardiac: denies: Palpitations, Pedal edema, Calf pain Respiratory: denies: Dyspnea, Cough, Wheezing GI: reports: Nausea. 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: Endometriosis, Fibroids, 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 - Past Surgical History Past Surgical History: Yes /REGISTER OF WILLS: Tubal ligation, Hysterectomy, Mastectomy - Present Medications Home Medications: Ambulatory Orders Medication Instructions Recorded Confirmed hydroCHLOROthiazide [Hydrodiuril] 12.5 mg PO DAILY 07/11/17 07/11/17 Atenolol 25 mg ORAL DAILY 02/23/18 Dexamethasone [Decadron] 4 mg PO DAILY #5 tablet 05/16/18 Tramadol HCl 50 mg PO Q6H PRN #15 tablet 05/16/18 - Allergies Allergies/Adverse Reactions: Allergies Allergy/AdvReac Type Severity Reaction Status Date / Time ciprofloxacin [From Cipro] Allergy Anaphylaxis Verified 05/15/18 21:53 levofloxacin Allergy Anaphylaxis Verified 05/15/18 21:53 - Social History Does the pt smoke?: No Smoking Status: Never smoker Does the pt drink ETOH?: Yes Does the pt have substance abuse?: No - Family History Family history: reports: Non contributory - Immunizations Immunizations are current?: Yes - POLST Patient has POLST: No PD ED PE NORMAL - Vitals Vital signs reviewed: Yes - General General: Alert and oriented X 3, No acute distress (not seeming to be in pain but is very anxious. ), Well developed/nourished - HEENT HEENT: Pharynx benign - Neck Neck: Supple, no meningeal sign, No bony TTP, No adenopathy, Other (tender left occipital ridge and at muscle insertion area on left. ) - Cardiac Cardiac: RRR, No murmur - Respiratory Respiratory: Clear bilaterally - Abdomen Abdomen: Normal bowel sounds, Soft, Non tender, Non distended, No organomegaly - Back Back: No CVA TTP - Derm Derm: Normal color, Warm and dry - Extremities Extremities: No tenderness to palpate, Normal ROM s pain, No edema, No calf tenderness / cord - Neuro Neuro: Alert and oriented X 3, No motor deficit, Normal speech Eye Opening: Spontaneous Motor: Obeys Commands Verbal: Oriented GCS Score: 15 - Psych Psych: No: Normal mood (anxious) Results - Vitals Vitals: Vital Signs - 24 hr 05/15/18 05/15/18 05/16/18 22:20 23:50 00:20 Heart Rate 53 L 60 54 L Respiratory 18 15 16 Rate Blood Pressure 128/75 151/75 H 153/76 H O2 Saturation 99 99 100 Oxygen O2 Source Room air - EKG (time done) 21:51 Rate: Rate (enter#) (52) Rhythm: Sinus bradycardia [place]: Normal Intervals: Normal [place] QRS: LVH Compare to prior EKG: Unchanged from prior EKG - Labs Labs: Laboratory Tests 05/15/18 05/15/18 05/15/18 22:15 22:15 22:15 WBC 5.3 RBC 4.56 Hgb 13.6 Hct 40.6 MCV 89.1 MCH 29.9 MCHC 33.6 RDW 13.0 Plt Count 185 MPV 8.0 Neut # (Auto) 2.6 Lymph # (Auto) 2.0 [place] # (Auto) 0.6 Eos # (Auto) 0.1 Baso # (Auto) 0.0 Absolute Nucleated RBC 0.01 Nucleated RBC % 0.1 ESR D-Dimer Sodium 138 Potassium 3.8 Chloride 101 Carbon Dioxide 28 Anion Gap 9.0 BUN 21 H Creatinine 0.8 Estimated GFR (MDRD) 90 Glucose 104 H Calcium 9.0 Total Bilirubin 1.0 AST 25 ALT 23 Alkaline Phosphatase 57 Troponin I < 0.04 Total Protein 7.6 Albumin 4.0 Globulin 3.6 Albumin/Globulin Ratio 1.1 Lipase 26 05/15/18 05/15/18 22:15 22:15 WBC RBC Hgb Hct MCV MCH MCHC RDW Plt Count MPV Neut # (Auto) Lymph # (Auto) [place] # (Auto) Eos # (Auto) Baso # (Auto) Absolute Nucleated RBC Nucleated RBC % ESR 4 D-Dimer < 200.0 L Sodium Potassium Chloride Carbon Dioxide Anion Gap BUN Creatinine Estimated GFR (MDRD) Glucose Calcium Total Bilirubin AST ALT Alkaline Phosphatase Troponin I Total Protein Albumin Globulin Albumin/Globulin Ratio Lipase - Rads (name of study) chest xray Radiology: Prelim report reviewed (no acute process), See rad report PD MEDICAL DECISION MAKING - ED course Complexity details: re-evaluated patient (improved with some meds. She is driving home, so not given narcotics here. Offered occipital nerve injection as she is having what seems muscular neck/head pain. She declined. ), considered differential, d/w patient Departure - Departure Disposition: Home, Self Care Clinical Impression: Atypical chest pain, Occipital headache Condition: Stable Record reviewed to determine appropriate education?: Yes Instructions: ED Chest Pain Atypical Unkn Cause, ED Cephalgia Unspecified Prescriptions: Dexamethasone [Decadron] 4 mg PO DAILY #5 tablet Tramadol HCl 50 mg PO Q6H PRN #15 tablet PRN Reason: Pain Comments: There is no signs of more serious cause for your chest pain such as heart attack nor for your headache such as vascular problems or inflammation. I presume some musculoskeletal pain for the headache or could be tension or migraine. We could try some naproxen type anti-inflammatories for the next few days. Could add Decadron anti-inflammatory as well for several days. To that add Tylenol or tramadol for pains. Follow-up with your primary care if not improved over the next few days and return if other symptoms develop. Discharge Date/Time: 05/16/18 00:30
[2018-05-15 22:22] LABS: BASOPHILS % (AUTO) 0.6 %; EOSINOPHILS # (AUTO) 0.1 10^3/uL (0.0-0.7); EOSINOPHILS % (AUTO) 1.9 %; HGB - HEMOGLOBIN 13.6 g/dL (12.0-16.0); LYMPHOCYTES % (AUTO) 37.6 %; MEAN CORPUSCULAR HEMOGLOBIN 29.9 pg (27.0-31.0); MEAN CORPUSCULAR HGB CONC 33.6 g/dL (32.0-36.0); MEAN CORPUSCULAR VOLUME 89.1 fL (81.0-99.0); MONOCYTES # (AUTO) 0.6 10^3/uL (0.0-1.0); MONOCYTES % (AUTO) 10.9 %; NEUTROPHILS # (AUTO) 2.6 10^3/uL (1.5-6.6); PLT - PLATELET COUNT 185 10^3/uL (130-450); RED BLOOD COUNT 4.56 10^6/uL (4.20-5.40); WHITE BLOOD COUNT 5.3 x10^3/uL (4.8-10.8)
[2018-05-15 22:36] LABS: ALBUMIN/GLOBULIN RATIO 1.1 (1.0-2.2); CREATININE 0.8 mg/dL (0.4-1.0); TOTAL PROTEIN 7.6 g/dL (6.7-8.2)
--- NOTE | 2018-05-15 22:36 | XRAY Report ---
Reason: Chest Pain Procedure Date: 05/15/2018 Accession Number: [id number] / [id number] Procedure: XR - Chest 1 View X-Ray CPT Code: 73379 FULL RESULT: EXAM: CHEST RADIOGRAPHY EXAM DATE: 05/15/2018 10:15 PM. CLINICAL HISTORY: Right-sided face and arm numbness. Chest pain. COMPARISON: CHEST 1 VIEW 12/06/2017 1:22 AM. TECHNIQUE: 1 view. FINDINGS: Lungs/Pleura: No focal opacities evident. No pleural effusion. No pneumothorax. Mediastinum: Within exam limitations, the cardiomediastinal contour is normal. Other: None. IMPRESSION: Stable normal appearance of the chest. RADIA
[2018-05-15] MEDS ORDERED: ACETAMINOPHEN 325 MG TABLET PO STA (22:42)
[2018-05-15] MEDS ORDERED: KETOROLAC 30 MG/ML VIAL IVP STA (22:42)
[2018-05-15] MEDS ORDERED: traMADol 50 MG TABLET PO STA (23:56)
[2018-05-16 00:20] VITALS: BP 153/76
== END 2018-05-16 00:30 | disposition home or self-care (01) ==
LOC: ED 21:41
DX: R07.89 Other chest pain (principal); G44.89 Other headache syndrome; R94.31 Abnormal electrocardiogram [ECG] [EKG]; I10 Essential (primary) hypertension; Z85.3 Personal history of malignant neoplasm of breast; Z90.10 Acquired absence of unspecified breast and nipple
CPT/HCPCS: 36415; 71045; 80053; 83690; 84484; 85025; 85379; 85651; 93005; 96374; 99283; 99284; A9270

== ENCOUNTER 2018-05-25 10:02 | Emergency (ER) | payer OTHER ==
[2018-05-25 10:17] VITALS: BP 139/82
--- NOTE | 2018-05-25 11:10 | ED Physician Documentation ---
History of Present Illness - Stated complaint Stated Complaint: NECK/HEAD PX/ARM NUMBNESS - Chief complaint Chief Complaint: Ext Problem - History obtained from History obtained from: Patient - History of Present Illness Timing: How many weeks ago (1) Pain level max: 8 Pain level now: 7 - Additonal information Additional information: 58-year-old female presents to the emergency department, and the right-sided neck pain radiating to the right shoulder and into the occiput. This been ongoing for several weeks. She was seen here last week for same, but did not fill any of her prescriptions or take any medications. She states she is not better yet. No fevers. No trauma. 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 : None HEENT: None Psych: None Musculoskeletal: None Derm: None - Past Surgical History Past Surgical History: Yes /MOTOR GRADER OPERATOR: Tubal ligation, Hysterectomy, Mastectomy - Present Medications Home Medications: Ambulatory Orders Medication Instructions Recorded Confirmed hydroCHLOROthiazide [Hydrodiuril] 12.5 mg PO DAILY 07/11/17 07/11/17 Atenolol 25 mg ORAL DAILY 02/23/18 Cyclobenzaprine [Flexeril] 10 mg PO TID PRN #10 tablet 05/25/18 - Allergies Allergies/Adverse Reactions: Allergies Allergy/AdvReac Type Severity Reaction Status Date / Time ciprofloxacin [From Cipro] Allergy Anaphylaxis Verified 05/25/18 10:16 levofloxacin Allergy Anaphylaxis Verified 05/25/18 10:16 - Social History Does the pt smoke?: No Smoking Status: Never smoker Does the pt drink ETOH?: Yes Does the pt have substance abuse?: No - Immunizations Immunizations are current?: Yes - POLST Patient has POLST: No PD ED PE NORMAL - Vitals Vital signs reviewed: Yes - General General: Alert and oriented X 3, No acute distress - HEENT HEENT: PERRL, Moist mucous membranes - Neck Neck: Supple, no meningeal sign, No bony TTP, Other (No bony tenderness to palpation. Paraspinal spasm present right paracervical. Reproduces her sympt oms. Positive Sp[place] test.) - Cardiac Cardiac: RRR - Respiratory Respiratory: No respiratory distress, Clear bilaterally - Abdomen Abdomen: Soft, Non tender, Non distended - Back Back: No spinal TTP - Derm Derm: Warm and dry - Neuro Neuro: Alert and oriented X 3, No motor deficit, No sensory deficit Results - Vitals Vitals: Vital Signs - 24 hr 05/25/18 10:14 Temperature 37.0 C Heart Rate 60 Respiratory 16 Rate Blood Pressure 139/82 H O2 Saturation 100 Oxygen O2 Source Room air PD MEDICAL DECISION MAKING - ED course Complexity details: reviewed old records, considered differential, d/w patient ED course: 58-year-old female presents to the emergency department what appears to be spasms in the neck with cervical radiculopathy. She has not taken her medications from her prior visit. Recommend that she fill these. We will also add a muscle relaxant to the these. No evidence of aortic dissection, carotid artery dissection, stroke. Patient counseled regarding signs and symptoms for which I believe and urgent re-evaluation would be necessary. Patient with good understanding of and agreement to plan and is comfortable going home at this time This document was made in part using voice recognition software. While efforts are made to proofread this document, sound alike and grammatical errors may occur. Departure - Departure Disposition: 01 Home, Self Care Clinical Impression: Neck muscle spasm, Cervical radiculopathy Condition: Good Instructions: ED Spasm Neck No Injury, ED Cervical Radiculopathy Follow-Up: Elie Chaudhari ARNP [Primary Care Provider] - Within 3 Days Prescriptions: Cyclobenzaprine [Flexeril] 10 mg PO TID PRN #10 tablet PRN Reason: Spasms Comments: Return if you worsen. Use the medications given today to help with spasm and pain. Fill the prescriptions from last week as well. Discharge Date/Time: 05/25/18 11:32
== END 2018-05-25 11:32 | disposition home or self-care (01) ==
LOC: ED 10:02
DX: M54.12 Radiculopathy, cervical region (principal); M62.830 Muscle spasm of back; I10 Essential (primary) hypertension
CPT/HCPCS: 99283

== ENCOUNTER 2019-01-23 21:17 | Emergency (ER) | payer OTHER ==
[2019-01-23] MEDS ORDERED: DEXAMETHASONE 10 MG/ML VIAL PO STA (22:26)
[2019-01-23] MEDS ORDERED: KETOROLAC 60 MG/2 ML VIAL IM STA (22:26)
[2019-01-23] MEDS ORDERED: CHERRY SYRUP 10 ML UDC PO ONE (22:26)
--- NOTE | 2019-01-23 22:31 | ED Physician Documentation ---
PD HPI NECK PAIN - Stated complaint Stated Complaint: HEADACHE/NUMB RT SHOULDER/DIFF TO SWALLOW - Chief complaint Chief Complaint: Neuro - History obtained from History obtained from: Patient - History of Present Illness Timing - onset: How many weeks ago (2) Timing - duration: Weeks (2) Timing - details: Gradual onset, Still present, Waxing and waning Location: Mid, Lower, Right Quality: Pain, Spasm, Sharp, Similar to prior episodes Associated symptoms: Numbness. No: Fever, Weakness, Incontinent of urine, Unable to urinate, Hematuria, Incontinent of stool Improves with: Rest, Position Worsened by: Movement Similar symptoms before: Diagnosis (cervical radiculopathy) Recently seen: Not recently seen - Additional information Additional information: 59-year-old female with a 2-year history of cervical radiculopathy on the right side has had symptoms worsening over the past 2 weeks. She has had prior evaluation done at [facility] with MRI and evaluation by the surgeon she is thought not to be a candidate for surgery she is a candidate for epidural steroid injection and she has not pursued this further. She does have symptoms regularly they are worse over the past 2 weeks. She is having symptoms going all way down into her leg today. She has pain in her arm and neck as well as a headache on the right side. She has been reluctant to take medications for this as she feels that she may have a rebound worsening of her symptoms. She relates most of her symptoms to a prior course of Levaquin which left her with generalized muscle atrophy. She states this was in 2016. 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 : None HEENT: None Psych: None Musculoskeletal: None Derm: None - Past Surgical History Past Surgical History: Yes /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: Tubal ligation, Hysterectomy, Mastectomy - Present Medications Home Medications: Ambulatory Orders Medication Instructions Recorded Confirmed hydroCHLOROthiazide [Hydrodiuril] 12.5 mg PO DAILY 07/11/17 07/11/17 amLODIPine [Norvasc] 5 mg PO DAILY 01/23/19 01/23/19 - Allergies Allergies/Adverse Reactions: Allergies Allergy/AdvReac Type Severity Reaction Status Date / Time ciprofloxacin [From Cipro] Allergy Anaphylaxis Verified 01/23/19 21:30 levofloxacin Allergy Anaphylaxis Verified 01/23/19 21:30 - Social History Does the pt smoke?: No Smoking Status: Never smoker Does the pt drink ETOH?: Yes Does the pt have substance abuse?: No - Immunizations Immunizations are current?: Yes - POLST Patient has POLST: No PD ED PE NORMAL - Vitals Vital signs reviewed: Yes (hypertensive mild ) - General General: Alert and oriented X 3, No acute distress, Well developed/nourished - HEENT HEENT: Atraumatic, PERRL, EOMI - Neck Neck: Supple, no meningeal sign, No bony TTP, Other (There is dense spasm to the trapezius bilaterally worse on the right and extending to the insertion at the occiput. ) - Cardiac Cardiac: RRR, No murmur - Respiratory Respiratory: No respiratory distress, Clear bilaterally - Abdomen Abdomen: Soft, Non tender - Back Back: No CVA TTP, No spinal TTP - Derm Derm: Normal color, Warm and dry, No rash - Extremities Extremities: No deformity, No edema, Other (There is no motor weakness appreciated) - Neuro Neuro: Alert and oriented X 3, sole layer hand 2-12 intact, No motor deficit, No sensory deficit, Normal speech Eye Opening: Spontaneous Motor: Obeys Commands Verbal: Oriented GCS Score: 15 - Psych Psych: Normal mood, Normal affect Results - Vitals Vitals: Vital Signs - 24 hr 01/23/19 01/23/19 21:26 21:33 Temperature 36.8 C Heart Rate 58 L 55 L Respiratory 16 18 Rate Blood Pressure 142/76 H 142/74 H O2 Saturation 100 100 Oxygen O2 Source Room air PD MEDICAL DECISION MAKING - ED course Complexity details: reviewed old records, re-evaluated patient, considered differential, d/w patient ED course: 59-year-old female with right-sided cervical radiculopathy has dense spasm and symptoms. She is administered Dex Methasone 10 mg orally and Toradol 60 mg IM. I discussed with the patient the use of Flexeril and pain medication to improve her sleep with expectation of improvement in her overall symptoms as well. She will attempt to take medications that she has at home. Departure - Departure Disposition: 01 Home, Self Care Clinical Impression: Cervical radiculopathy Condition: Stable Instructions: ED Cervical Radiculopathy Follow-Up: Elie Chaudhari ARNP [Primary Care Provider] -
[2019-01-23 22:49] VITALS: BP 151/91
== END 2019-01-23 22:51 | disposition home or self-care (01) ==
LOC: ED 21:17
DX: M54.12 Radiculopathy, cervical region (principal); M62.838 Other muscle spasm; I10 Essential (primary) hypertension
CPT/HCPCS: 96372; 99283; 99284; A9270

== ENCOUNTER 2019-03-22 06:42 | Emergency (ER) | payer OTHER ==
[2019-03-22 07:16] LABS: BASOPHILS % (AUTO) 0.3 %; EOSINOPHILS % (AUTO) 1.3 %; HGB - HEMOGLOBIN 13.2 g/dL (12.0-16.0); LYMPHOCYTES # (AUTO) 0.9 10^3/uL (1.5-3.5); LYMPHOCYTES % (AUTO) 26.8 %; MEAN CORPUSCULAR HEMOGLOBIN 29.8 pg (27.0-31.0); MEAN CORPUSCULAR HGB CONC 33.8 g/dL (32.0-36.0); MEAN PLATELET VOLUME 9.7 fL (7.9-10.8); MONOCYTES # (AUTO) 0.4 10^3/uL (0.0-1.0); NEUTROPHILS # (AUTO) 1.9 10^3/uL (1.5-6.6); NEUTROPHILS % (AUTO) 60.3 %; PLT - PLATELET COUNT 192 10^3/uL (130-450); RED BLOOD COUNT 4.43 10^6/uL (4.20-5.40); RED CELL DISTRIBUTION WIDTH 12.2 % (12.0-15.0); WHITE BLOOD COUNT 3.2 x10^3/uL (4.8-10.8)
--- NOTE | 2019-03-22 07:26 | ED Physician Documentation ---
PD HPI CHEST PAIN - Stated complaint Stated Complaint: CHEST/BACK DISCOMFORT - Chief complaint Chief Complaint: Cardiac - History obtained from History obtained from: Patient - History of Present Illness Timing - onset: How many days ago (few) Timing - onset during: Light activity Timing - duration: Days (few) Timing - details: Gradual onset, Still present, Waxing and waning Quality: Tightness, Aching Location: Substernal, Upper back (initially upper back) Improved by: No: Rest Worsened by: Movement. No: Exertion, Inspiration, Eating Associated symptoms: No: Shortness of air, Nausea, Vomiting, Cough Similar symptoms before: Has not had sx before Review of Systems Constitutional: denies: Fever, Chills Nose: denies: Rhinorrhea / runny nose, Congestion Throat: denies: Sore throat Cardiac: denies: Palpitations, Pedal edema, Calf pain Respiratory: denies: Cough GI: denies: Abdominal Pain, Nausea, Vomiting, Diarrhea : denies: Dysuria, Frequency Skin: denies: Rash, Lesions Musculoskeletal: reports: Back pain Neurologic: denies: Generalized weakness, Near syncope PD PAST MEDICAL HISTORY - Past Medical History Cardiovascular: Hypertension, High cholesterol Respiratory: None Neuro: Headaches Endocrine/Autoimmune: None GI: 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, Diverticulitis 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, 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, 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 : None HEENT: None Psych: None Musculoskeletal: None Derm: None - Past Surgical History Past Surgical History: Yes /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 WORKER: Tubal ligation, Hysterectomy, Mastectomy - Present Medications Home Medications: Ambulatory Orders Medication Instructions Recorded Confirmed hydroCHLOROthiazide [Hydrodiuril] 12.5 mg PO DAILY 07/11/17 07/11/17 amLODIPine [Norvasc] 5 mg PO DAILY 01/23/19 01/23/19 Famotidine 20 mg PO DAILY #30 tablet 03/22/19 Naproxen 500 mg PO BID #20 tablet 03/22/19 - Allergies Allergies/Adverse Reactions: Allergies Allergy/AdvReac Type Severity Reaction Status Date / Time ciprofloxacin [From Cipro] Allergy Anaphylaxis Verified 01/23/19 21:30 levofloxacin Allergy Anaphylaxis Verified 01/23/19 21:30 - Social History Does the pt smoke?: No Smoking Status: Never smoker Does the pt drink ETOH?: Yes Does the pt have substance abuse?: No - Family History Family history: reports: CAD. denies: Sudden , Aortic aneursym, Aortic dissection - Immunizations Immunizations are current?: Yes - POLST Patient has POLST: No PD ED PE NORMAL - Vitals Vital signs reviewed: Yes - General General: Alert and oriented X 3, No acute distress, Well developed/nourished - HEENT HEENT: Moist mucous membranes, Pharynx benign - Neck Neck: Supple, no meningeal sign, No adenopathy - Cardiac Cardiac: RRR, No murmur - Respiratory Respiratory: Clear bilaterally, Other (no chestwall tenderness) - Abdomen Abdomen: Soft, Non tender - Back Back: No CVA TTP, No spinal TTP (some tender right parathoracic muscles. ) - Derm Derm: Normal color, Warm and dry - Extremities Extremities: No tenderness to palpate, No edema, No calf tenderness / cord - Neuro Neuro: Alert and oriented X 3, No motor deficit, Normal speech Results - Vitals Vitals: Vital Signs - 24 hr 03/22/19 03/22/19 03/22/19 06:45 07:17 10:16 Temperature 36.4 C L Heart Rate 67 64 56 L Respiratory 16 16 14 Rate Blood Pressure 139/75 H 153/77 H 155/84 H O2 Saturation 100 98 100 03/22/19 10:41 Temperature 37 C Heart Rate 55 L Respiratory 14 Rate Blood Pressure 137/78 H O2 Saturation 100 Oxygen O2 Source Room air - EKG (time done) 06:52 Rate: Rate (enter#) (59) Rhythm: NSR [place]: Normal Intervals: Normal [place] QRS: LVH Ischemia: Normal ST segments. No: ST elevation c/w ischemia, ST depression - Labs Labs: Laboratory Tests 03/22/19 03/22/19 03/22/19 07:05 07:05 07:05 WBC 3.2 L RBC 4.43 Hgb 13.2 Hct 39.0 MCV 88.0 MCH 29.8 MCHC 33.8 RDW 12.2 Plt Count 192 MPV 9.7 Neut # (Auto) 1.9 Lymph # (Auto) 0.9 L Winn # (Auto) 0.4 Eos # (Auto) 0.0 Baso # (Auto) 0.0 Absolute Nucleated RBC 0.00 Nucleated RBC % 0.0 Sodium 139 Potassium 3.2 L Chloride 100 L Carbon Dioxide 30 Anion Gap 9.0 BUN 14 Creatinine 0.8 Estimated GFR (MDRD) 90 Glucose 127 H Calcium 9.0 Total Bilirubin 1.1 H AST 22 ALT 18 Alkaline Phosphatase 56 Troponin I High Sens < 2.3 L B-Natriuretic Peptide Total Protein 7.2 Albumin 4.0 Globulin 3.2 Albumin/Globulin Ratio 1.3 Lipase 21 L 03/22/19 07:05 WBC RBC Hgb Hct MCV MCH MCHC RDW Plt Count MPV Neut # (Auto) Lymph # (Auto) Winn # (Auto) Eos # (Auto) Baso # (Auto) Absolute Nucleated RBC Nucleated RBC % Sodium Potassium Chloride Carbon Dioxide Anion Gap BUN Creatinine Estimated GFR (MDRD) Glucose Calcium Total Bilirubin AST ALT Alkaline Phosphatase Troponin I High Sens B-Natriuretic Peptide 13 Total Protein Albumin Globulin Albumin/Globulin Ratio Lipase - Rads (name of study) chest Radiology: Prelim report reviewed, See rad report (no acute process) PD MEDICAL DECISION MAKING - ED course Complexity details: considered differential (back pain into chest, with muscular characteristic. Negative tests here and no improvement with GI cocktail. Presume muscular. ), d/w patient Departure - Departure Disposition: Home, Self Care Clinical Impression: Acute thoracic back pain Qualifiers: Back pain laterality: unspecified Qualified Code(s): M54.6 - Pain in thoracic spine Chest pain Qualifiers: Chest pain type: precordial pain Qualified Code(s): R07.2 - Precordial pain Instructions: ED Chest Pain Atypical Unkn Cause, ED Sprain Thoracic Spine Follow-Up: Elie Chaudhari ARNP [Primary Care Provider] - Prescriptions: Famotidine 20 mg PO DAILY #30 tablet Naproxen 500 mg PO BID #20 tablet Comments: Your back pain into the chest sounds likely to be musculoskeletal. There is no signs of heart or lung cause based on the test we did today. It does not clearly sound like gastritis either. At this point I would treat it with an anti-inflammatory such as naproxen twice daily with food for a week. Add Tylenol every 6 hours if needed for pains as well. If you have a more clear pattern of worsening organ provement with eating, you could use acid reducing medicine such as famotidine. Follow-up with your primary care later this coming week for recheck and to reassess how well you are doing. Discharge Date/Time: 03/22/19 10:49
[2019-03-22 07:32] LABS: ALBUMIN/GLOBULIN RATIO 1.3 (1.0-2.2); BILIRUBIN,TOTAL 1.1 mg/dL (0.2-1.0); CREATININE 0.8 mg/dL (0.4-1.0); TOTAL PROTEIN 7.2 g/dL (6.7-8.2)
[2019-03-22] MEDS ORDERED: MAG HYDROX/AL HYDROX/SIMETH 30 ML UDC PO STA (07:51)
[2019-03-22] MEDS ORDERED: LIDOCAINE VISCOUS 2% 15 ML UDC MM STA (07:51)
[2019-03-22] MEDS ORDERED: ACETAMINOPHEN 325 MG TABLET PO STA (07:52)
--- NOTE | 2019-03-22 08:49 | XRAY Report ---
Reason: chest and back pain Procedure Date: 03/22/2019 Accession Number: [id number] / [id number] Procedure: XR - Chest 2 View X-Ray CPT Code: 44188 Final Report FULL RESULT: EXAM: CHEST RADIOGRAPHY EXAM DATE: 03/22/2019 07:57 AM. CLINICAL HISTORY: Chest and back pain. COMPARISON: CHEST 1 VIEW 05/15/2018 10:02 PM CHEST 2 VIEW PA/LAT 04/29/2016 1:06 PM. TECHNIQUE: 2 views. FINDINGS: Lungs/Pleura: No focal opacities evident. No pleural effusion. No pneumothorax. Normal volumes. Mediastinum: Heart and mediastinal contours are unremarkable. Other: No acute osseous abnormality. IMPRESSION: Normal 2-view chest radiography. RADIA
[2019-03-22] MEDS ORDERED: KETOROLAC 15 MG/ML VIAL IVP STA (09:57)
[2019-03-22 10:42] VITALS: BP 137/78
== END 2019-03-22 10:49 | disposition home or self-care (01) ==
LOC: ED 06:42
DX: M54.6 Pain in thoracic spine (principal); R07.2 Precordial pain; I10 Essential (primary) hypertension; Z82.49 Family history of ischemic heart disease and other diseases of the circulatory system
CPT/HCPCS: 36415; 71046; 80053; 83690; 83880; 84484; 85025; 96374; 99284; A9270; 93005

== ENCOUNTER 2020-07-09 22:52 | Emergency (ER) | payer OTHER ==
--- NOTE | 2020-07-10 00:39 | ED Physician Documentation ---
History of Present Illness - Stated complaint Stated Complaint: RT SIDE NUMB/HBP - Chief complaint Chief Complaint: Ext Problem - History obtained from History obtained from: Patient - History of Present Illness Timing: How many weeks ago (2) Pain level now: 4 Improved by: no ameliorating factors Worsened by: partial component of exacerbation with movement of right shoulder - Additonal information Additional information: c/o 2 weeks of intermittent right shoulder pain that radiates down RUE and associated with paresthesias. Denies injury. the pain has a component of exacerbation with certain movements of the right shoulder. she does not recall having similar symptoms in the past although [facility] of [facility] (such as ED note from 01/23/19). Patient is right hand dominant Review of Systems Constitutional: denies: Fever Skin: denies: Rash Musculoskeletal: reports: Extremity pain, Joint pain. denies: Neck pain, Extremity swelling, Joint swelling Neurologic: reports: Numbness. denies: Focal weakness PD PAST MEDICAL HISTORY - Past Medical History Past Medical History: Yes Cardiovascular: Hypertension, High cholesterol Respiratory: None Neuro: Headaches Endocrine/Autoimmune: None GI: GERD, Diverticulitis [employer]: Endometriosis, Fibroids, 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 : None HEENT: None Psych: None Musculoskeletal: None Derm: None - Past Surgical History Past Surgical History: Yes /[employer]: Tubal ligation, Hysterectomy, Mastectomy - Present Medications Home Medications: Ambulatory Orders Medication Instructions Recorded Confirmed hydroCHLOROthiazide [Hydrodiuril] 12.5 mg PO DAILY 07/11/17 07/09/20 atenoloL [Tenormin] 25 mg PO DAILY 07/09/20 07/09/20 - Allergies Allergies/Adverse Reactions: Allergies Allergy/AdvReac Type Severity Reaction Status Date / Time ciprofloxacin [From Cipro] Allergy Anaphylaxis Verified 07/09/20 23:11 levofloxacin Allergy Anaphylaxis Verified 07/09/20 23:11 - Social History Does the pt smoke?: No Smoking Status: Never smoker Does the pt drink ETOH?: Yes Does the pt have substance abuse?: No - Immunizations Immunizations are current?: Yes - POLST Patient has POLST: No PD ED PE NORMAL - Vitals Vital signs reviewed: Yes - General General: Alert and oriented X 3, No acute distress, Well developed/nourished - Neck Neck: Supple, no meningeal sign, No bony TTP - Cardiac Cardiac: RRR, No murmur - Respiratory Respiratory: No respiratory distress, Clear bilaterally - Derm Derm: Normal color, Warm and dry, No rash - Extremities Extremities: No tenderness to palpate - Neuro Neuro: No motor deficit, No sensory deficit (RUE LTS intact) PD ED PE EXPANDED - Extremities Extremities: Other (right shoulder ROM intact but pain is exacerbated with right shoulder flexion, internal rotation) Results - Vitals Vitals: Oxygen O2 Source Room air PD MEDICAL DECISION MAKING - ED course Complexity details: reviewed old records, considered differential, d/w patient ED course: H+P suggestive of cervical radiculopathy. given decadron PO and IM toradol. She declines stronger pain medication and declines muscle relaxers Departure - Departure Disposition: 01 Home, Self Care Clinical Impression: Cervical radiculopathy Condition: Good Instructions: ED Cervical Radiculopathy Follow-Up: CORI MALDONADO MD [Primary Care Provider] - Discharge Date/Time: 07/10/20 03:07
[2020-07-10] MEDS ORDERED: CHERRY SYRUP 10 ML UDC PO ONE (02:29)
[2020-07-10] MEDS ORDERED: DEXAMETHASONE 10 MG/ML VIAL PO STA (02:29)
[2020-07-10] MEDS ORDERED: KETOROLAC 60 MG/2 ML VIAL IM STA (02:29)
[2020-07-10 03:16] VITALS: BP 135/72
== END 2020-07-10 03:07 | disposition home or self-care (01) ==
LOC: ED 22:52
DX: M54.12 Radiculopathy, cervical region (principal); I10 Essential (primary) hypertension
CPT/HCPCS: 96372; 99283; 99284; A9270

== ENCOUNTER 2020-07-29 07:17 | Outpatient (CLI) | payer OTHER ==
--- NOTE | 2020-07-29 09:15 | XRAY Report ---
PROCEDURE: Hand 3 View RT INDICATIONS: RIGHT HAND PAIN TECHNIQUE: 3 views of the hand(s) acquired. COMPARISON: None FINDINGS: Bones: No fractures or dislocations. No suspicious bony lesions. Soft tissues: No suspicious soft tissue calcifications. IMPRESSION: No trauma found, source of current pain is not identified. Reviewed by: Mekhi Edmondson MD on 07/29/2020 9:14 AM PDT Approved by: Mekhi Edmondson MD on 07/29/2020 9:14 AM PDT Station ID: [id number]
== END 2020-07-29 23:59 | disposition home or self-care (01) ==
LOC: DI.N 07:17
PROVIDERS: ATTEND Orthopaedic Surgery
DX: M79.641 Pain in right hand (principal)

== ENCOUNTER 2020-11-23 21:53 | Emergency (ER) | payer OTHER ==
--- NOTE | 2020-11-24 01:35 | ED Physician Documentation ---
PD HPI HEADACHE - Stated complaint Stated Complaint: RT PX HEAD,NAUSEA - Chief complaint Chief Complaint: Neuro - History obtained from History obtained from: Patient - Additional information Additional information: Patient comes emergency department chief complaint of right-sided headache that has been going on for the last 10 days. She states she is not really sure what got it started, but it has been persistent, not necessarily worsening or improving. She states that she feels a cold sensation over the superior posterior portion of her scalp on the right and it almost feels like water dripping down her head. She also gets a pain behind her eyes that sometimes goes into her temples. The patient has had some nausea associated with a sense of heartburn. She has a history of GERD so she is not sure if the nausea is from the GERD or if it is from the headache. She has not taken any medication for this. Patient states she took 1 dose of Excedrin for the headache but otherwise has not treated it because she does not like to take medicines. She denies any focal deficits. She is mainly here because she wants to get checked out and see if "anything else is going on". Patient denies feeling sick in any other way. She states she is otherwise healthy. Review of Systems Ten Systems: 10 systems reviewed and negative Constitutional: reports: Reviewed and negative Eyes: reports: Reviewed and negative Ears: reports: Reviewed and negative Nose: reports: Reviewed and negative Throat: reports: Reviewed and negative Cardiac: reports: Reviewed and negative Respiratory: reports: Reviewed and negative GI: reports: Reviewed and negative : reports: Reviewed and negative Skin: reports: Reviewed and negative Musculoskeletal: reports: Reviewed and negative Neurologic: reports: Headache Psychiatric: reports: Reviewed and negative Endocrine: reports: Reviewed and negative Immunocompromised: reports: Reviewed and negative PD PAST MEDICAL HISTORY - Past Medical History Past Medical History: Yes Cardiovascular: Hypertension, High cholesterol Respiratory: None Neuro: Headaches Endocrine/Autoimmune: None GI: 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, Diverticulitis 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, 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, 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 : None HEENT: None Psych: None Musculoskeletal: None Derm: None - Past Surgical History 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, Hysterectomy, Mastectomy - Present Medications Home Medications: Ambulatory Orders Medication Instructions Recorded Confirmed hydroCHLOROthiazide [Hydrodiuril] 12.5 mg PO DAILY 07/11/17 07/09/20 atenoloL [Tenormin] 25 mg PO DAILY 07/09/20 07/09/20 Ondansetron Odt [Zofran] 4 mg TL Q6H PRN #10 tablet 11/24/20 Sumatriptan Succinate [Imitrex] 50 mg PO Q6H PRN #12 tablet 11/24/20 - Allergies Allergies/Adverse Reactions: Allergies Allergy/AdvReac Type Severity Reaction Status Date / Time ciprofloxacin [From Cipro] Allergy Anaphylaxis Verified 11/23/20 22:12 levofloxacin Allergy Anaphylaxis Verified 11/23/20 22:12 - Social History Does the pt smoke?: No Smoking Status: Never smoker Does the pt drink ETOH?: Yes Does the pt have substance abuse?: No - Immunizations Immunizations are current?: Yes - POLST Patient has POLST: No PD ED PE NORMAL - Vitals Vital signs reviewed: Yes - General General: Alert and oriented X 3, No acute distress, Well developed/nourished - HEENT HEENT: Atraumatic, PERRL, EOMI, Moist mucous membranes - Neck Neck: Supple, no meningeal sign, No bony TTP, Other (Mild paraspinal muscular tenderness on the right.) - Cardiac Cardiac: RRR, No murmur, Strong equal pulses - Respiratory Respiratory: No respiratory distress, Clear bilaterally - Abdomen Abdomen: Soft, Non tender, Non distended - Back Back: No spinal TTP - Derm Derm: Normal color, Warm and dry, No rash - Extremities Extremities: No deformity, No edema - Neuro Neuro: Alert and oriented X 3 - Psych Psych: Normal mood, Normal affect Results - Vitals Vitals: Vital Signs - 24 hr 11/23/20 11/24/20 11/24/20 22:07 00:33 01:42 Temperature 36.2 C L 37 C 36.6 C Heart Rate 69 54 L 54 L Respiratory 14 54 H 16 Rate Blood Pressure 147/83 H 142/91 H 140/65 H O2 Saturation 99 100 100 Oxygen O2 Source Room air - Rads (name of study) CT head Radiology: Final report received, EMP read indepedently, See rad report (Negative) PD MEDICAL DECISION MAKING - ED course Complexity details: reviewed results, re-evaluated patient, considered differential, d/w patient ED course: The patient was well-appearing in the emergency department and declined to have any symptomatic treatment. I told her that the main thing I can offer her is a CT scan of the head to make sure there is nothing more serious going on. The patient did not have any accompanying neurologic symptoms, but she did states she would like to have the CT done. This was done and found to be negative. I have given her a prescription for Zofran and for Imitrex. We have discussed the usual indications for return. Departure - Departure Disposition: 01 Home, Self Care Clinical Impression: Headache Qualifiers: Headache type: unspecified Headache chronicity pattern: acute headache Intractability: not intractable Qualified Code(s): R51.9 - Headache, unspecified Condition: Stable Instructions: ED Cephalgia Unspecified Prescriptions: Sumatriptan Succinate [Imitrex] 50 mg PO Q6H PRN #12 tablet PRN Reason: Headache Ondansetron Odt [Zofran] 4 mg TL Q6H PRN #10 tablet PRN Reason: Nausea / Vomiting Comments: Your head CT looks good. There is no evidence of a serious or emergent condition causing your headache. It is not clear what has caused you to start having this headache, but there is no evidence of a tumor, aneurysm, or stroke. Please take the migraine medicine and nausea medicine if needed. Follow-up with your doctor for further evaluation if you continue to have symptoms for more than the next couple of weeks.
[2020-11-24 01:43] VITALS: BP 140/65
--- NOTE | 2020-11-24 08:31 | CT Report ---
PROCEDURE: HEAD WO INDICATIONS: R headache x 2 weeks, worsening TECHNIQUE: Noncontrast 4.5 mm thick angled axial sections acquired from the foramen magnum to the vertex. For r adiation dose reduction, the following was used: automated exposure control, adjustment of mA and/or kV according to patient size. COMPARISON: MRI brain 12/14/2016 FINDINGS: Image quality: Excellent. CSF spaces: Basal cisterns are patent. No extra-axial fluid collections. Ventricles are normal in size and shape. Brain: No midline shift. No intracranial masses or hemorrhage. Van-white matter interface is norm al. Skull and face: Calvarium and visualized facial bones are intact, without suspicious lesions. Sinuses: Visualized sinuses and mastoids are clear. IMPRESSION: No acute intracranial abnormality. No significant change from preliminary report. Reviewed by: Pito Norris MD on 11/24/2020 8:30 AM PDT Approved by: Pito Norris MD on 11/24/2020 8:30 AM PDT Station ID: [id number]
== END 2020-11-24 02:05 | disposition home or self-care (01) ==
LOC: ED 21:53
DX: R51.9 Headache, unspecified (principal); I10 Essential (primary) hypertension
CPT/HCPCS: 99284

== ENCOUNTER 2021-03-13 07:59 | Outpatient (CLI) | payer OTHER ==
--- NOTE | 2021-03-13 10:19 | MRI Report ---
PROCEDURE: Shoulder RT W/O INDICATIONS: RIGHT SHOULDER PAIN TECHNIQUE: Noncontrast oblique coronal T2 fast spin echo with fat saturation, oblique sagittal T1 spin echo and T2 fast spin echo with fat saturation, axial T1 spin echo and T2 fast spin echo with fat saturation t hrough the shoulder. COMPARISON: None. FINDINGS: Image quality: Excellent. Rotator cuff: There is moderate supraspinatus and infraspinatus tendinosis with superimposed low-grad e intrasubstance tearing of the supraspinatus tendon at the anterior footprint. The teres minor and s ubscapularis tendons are intact. There is no significant rotator cuff muscle atrophy. Bones and bursae: No acute trabecular bone injury. Small chronic traction cystic changes are seen at the posterosuperior humeral head. Multifocal partial-thickness cartilage thinning and irregularity is seen at the superomedial humeral head and the anterior glenoid with subchondral cystic changes and f ormation of small marginal osteophytes. Mild to moderate degenerative changes are seen in the acromio clavicular joint. A small osteophyte is seen at the anterolateral aspect of the acromion. There is tr ross subacromial/subdeltoid bursal fluid. A small glenohumeral effusion is present. Capsule and soft tissues: Mild irregularity of the superior to posterosuperior labrum is suspicious for nondisplaced tearing. Abnormal signal also extends into the anterosuperior labrum with a small 2 mm paralabral cyst. The proximal biceps long head tendon is intact. Fluid and a small amount of debri s or synovial hypertrophy are seen in the biceps long head tendon sheath that may indicate tenosynovi tis. There is partial effacement of the normal fat signal in the rotator interval. The ligaments appe ar to be intact. IMPRESSION: 1.Moderate supraspinatus and infraspinatus tendinosis with superimposed low-grade intrasubstance tear ing at the anterior supraspinatus tendon footprint. 2.Nondisplaced tearing of the posterosuperior to anterosuperior labrum. A 2 mm paralabral cyst is see n at the anterosuperior labrum. 3.Mild tenosynovitis of the proximal biceps long head tendon. 4.Glenohumeral degenerative changes including multifocal moderate to high-grade cartilage loss and cohn bchondral cystic changes with formation of small marginal osteophytes. 5.Mild to moderate acromioclavicular osteoarthrosis. A small osteophyte is seen at the anterolateral aspect of the acromion. 6.Small subacromial/subdeltoid bursal effusion or bursitis. Reviewed by: Travis Jo MD on 03/13/2021 10:18 AM PST Approved by: Travis Jo MD on 03/13/2021 10:18 AM PST Station ID: [id number]
== END 2021-03-13 08:00 | disposition home or self-care (01) ==
LOC: DI 07:59
PROVIDERS: ATTEND Student in an Organized Health Care Education/Training Program
DX: M75.101 Unspecified rotator cuff tear or rupture of right shoulder, not specified as traumatic (principal); M19.011 Primary osteoarthritis, right shoulder

== ENCOUNTER 2021-05-22 08:24 | Outpatient (CLI) | payer OTHER ==
--- NOTE | 2021-05-22 11:01 | XRAY Report ---
PROCEDURE: Shoulder 4 View RT INDICATIONS: RIGHT SHOULDER PAIN TECHNIQUE: 4 views of the shoulder were acquired. COMPARISON: None. FINDINGS: Bones: No fractures or dislocations. No suspicious bony lesions. Visualized ribs appear intact. Mi ld acromioclavicular joint arthritis. Soft tissues: No suspicious soft tissue calcifications. Surgical clips noted in the right breast/ch est wall. IMPRESSION: 1. Mild acromioclavicular joint osteoarthritis. 2. No acute osseous lesion. If there are persistent symptoms or continued clinical concern for pathol ogy, then repeat plain film radiographs (7-10 days) or advanced imaging (CT, MR, bone scan) should be considered for further evaluation. Reviewed by: Flakita Suarez MD, PhD on 05/22/2021 10:59 AM [facility] Approved by: Flakita Suarez MD, PhD on 05/22/2021 10:59 AM [facility] Station ID: [id number]
== END 2021-05-22 08:25 | disposition home or self-care (01) ==
LOC: DI.WOS 08:24
PROVIDERS: ATTEND Physician Assistant
DX: M19.011 Primary osteoarthritis, right shoulder (principal)

== ENCOUNTER 2022-02-14 10:04 | Outpatient (CLI) | payer OTHER ==
[2022-02-14 11:03] VITALS: BP 132/90
--- NOTE | 2022-02-14 11:03 | SLEEP CARE CONSULTATION ---
Information from patient questionnaire entered by Feli Loja. I have reviewed and concur with the information entered by Feli Loja. This document represents the service I personally performed and the decisions made by me, Lauren Klein ARNP. History of Present Illness Service Date and Time: 02/14/2022 1004 Reason for Visit: New patient, Previously diagnosed sleep apnea, sleep apnea on CPAP therapy Chief Complaint: reports: Snoring, Other (update supplies ) Date of Onset: 2YEARS Usual bedtime: 11 PM Time it takes to fall asleep: 1HR when doing things; without this maybe 30 mins Snores at night: Yes Observed to quit breathing while asleep: No Sleeps alone due to snoring: Yes Number of times waking at night: 3 Reasons for waking at night: reports: Bathroom, Other (NOISE, UNKNOWN REASONS ) Toss, Turn, or Twitch while sleeping: Yes Recalls having dreams: Yes Usually gets out of bed at: 630AM Feels refreshed in the morning: No Morning headache: Yes (in last 2 weeks) Sleepy or fatigued during the day: Yes Ever fallen asleep while driving: Yes (drowsy driving) Takes day naps: No Dreams during day naps: No Prior sleep studies: Yes Year and Where: 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 - Parasomnia Symptoms Ever been unable to move upon waking from sleep: No Walks in sleep: No Talks in sleep: No Ever acted out dreams in sleep: No Ever felt weak in the knees when startled or emotional: No Bothered by creepy, crawly, restless sensations in legs: No Problems with memory or concentration: Yes (a little of both) CPAP Compliance Data - Data Reviewed with Patient Average duration of nightly device use: 5 hours 43 minutes Compliance rate %: 7 ( days) Current pressure setting (cmH2O): 8-12 Average residual AHI: 2.1 Central apnea: 0.3 Obstructive apnea: 1.6 Compliance data discussion: She has a ResMed Airsense 10 that was setup in 06/2016. She ordered some supplies off [email or web address] recently to be able to use her CPAP. She uses a nasal cushion that covers her nose. She just got new cushion. Subjective Missed days of use due to: reports: other (she "got lazy") Patient concerns: denies: aerophagia, mask discomfort, air blowing in eyes, mask leak noise, condensation in mask/hose, nasal congestion, dry mouth, nose, throat, epistaxis Observed to snore while using device: No Current pressure setting perceived as: comfortable On therapy, patient: reports: other (no difference noted at this time). 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 Patient is and lives in [place]. Have you smoked in the past 12 months: No Alcohol use: Yes Alcohol amount and frequency: 8OZ COUPLE TIMES A MONTH Caffeine use: Yes Caffeine amount and frequency: 8OZ TEA COUPLE TIMES A WEEK Family History Family history of sleep disordered breathing: No Allergies and Home Medications Known drug allergies: Yes (CIPROFLOXACIN, LEVOFLOXACIN) Drug allergies reviewed: Yes (as listed) Home medication list reviewed: Yes Allergy and home medication list: Medications: Losartan 50 mg HCTZ 25 mg Review of Systems Weight gain over past 5 years: 10 Cardiovascular: reports: high blood pressure, chest pain Gastrointestinal: reports: heartburn, nausea, abdominal pain Neurological: reports: headaches Ear/Nose/Throat: denies: tonsillectomy Endocrine: reports: too hot or cold, unexplained weakness Musculoskeletal: reports: joint pain, neck pain Physical Exam Vital signs obtained and entered by: FELI Hernández MA Blood Pressure: 132/90 (LEFT ARM) Cuff size: regular Heart Rate: 73 O2 Saturation: 99 Height: 5 ft 6 in Weight: 158 lb Body Mass Index: 25.4 BMI Classification: Overweight Neck circumference: 15 (inches) Mouth and throat: normal Soft palate: long Hard palate: normal Uvula: normal Uvula visualization: 100% Mallampati Class I Tongue: enlarged in size with teeth galvan on lateral edges Tonsils: small Heart: regular rate and rhythm Lungs: clear bilaterally Impression and Plan 1. Obstructive Sleep Apnea-Hypopnea Syndrome, unknown, with poor treatment compliance and good apnea control. On CPAP therapy, the patient has better sleep quality and is more rested overall. Patient states she got "lazy" and stopped using her CPAP regularly. She will put it on here and there but only wear it for a few days at a time. She states she also needed supplies and was not getting any anywhere. She recently ordered some from [employer] and started using her CPAP about 3 to 4 days ago. I reviewed with patient compliance guidelines for insurance coverage. Patient was counseled on the difference between meeting compliance and optimal use of CPAP. Optimal use of CPAP is use of CPAP with all sleep to obtain maximum benefit of treatment. Patient is encouraged to use CPAP with all sleep. Patient would like to obtain a [employer] for supplies. I discussed with her that I will need a copy of her last sleep study that she did around 2017 at [facility] sleep lab here in [facility]. She will also need to increase compliance on using her CPAP machine. I will have her make an appointment to recheck her compliance in 1 to 2 months. As long as we can obtain her last sleep study we will not necessarily need to repeat the study. Patient's apnea severity and rationale for treatment to reduce apnea, improve sleep quality and reduce cardiovascular and cerebrovascular events was reviewed. I also reviewed the benefit of consistent device use of CPAP for hypertension and gastric reflux. Patient voiced understanding and agreement with plan. 2. Patient is overweight with a BMI of 25.4. Patient encouraged to try to lose weight and maintain a healthy weight. * Continue auto CPAP pressure at 8-12 cmH2O * Obtain last sleep study to verify diagnosis and severity * Notify me if snoring with mask or feeling that the pressure is too much or too little * Maintain healthy weight weight * Call this office if any problems using CPAP * Return for follow up in 1-2 months, or sooner if concerns arise Counseling Topics: Spare mask, Weight loss health impact Visit Type: In Office Time Spent with Patient (minutes): 32 Provider Statement: I spent 100% of the Face to Face Visit with the patient with greater than 50% spent counseling the patient and coordination of care.
== END 2022-02-14 10:05 | disposition home or self-care (01) ==
LOC: SC 10:04
PROVIDERS: ATTEND Nurse Practitioner Family
DX: G47.33 Obstructive sleep apnea (adult) (pediatric) (principal); E66.3 Overweight; Z68.25 Body mass index [BMI] 25.0-25.9, adult
CPT/HCPCS: 99203; 99212

== ENCOUNTER 2022-03-21 08:27 | Outpatient (CLI) | payer OTHER ==
[2022-03-21 09:02] VITALS: BP 150/84
--- NOTE | 2022-03-21 09:02 | SLEEP CARE CONSULTATION ---
Information from patient questionnaire entered by Feli Loja. I have reviewed and concur with the information entered by Feli Loja. This document represents the service I personally performed and the decisions made by , Lauren Klein ARNP. History of Present Illness Service Date and Time: 03/21/2022826 Previous diagnosis: Mild, Obstructive Sleep Apnea-Hypopnea Syndrome AHI: 13.0 Reason for follow up: one month (F/U ON COMPLIANCE ) Equipment type: CPAP (RESMED Airsense 10 Autoset for Her) Equipment obtained from: Other (needs a DME) Mask style: Nasal Backup mask available: No (will need to keep old mask when replaced) Prior sleep studies: Yes Year and Where: [facility] 2016 Type of Sleep Study: Polysomnography HPI additional information: ALEX GARCIA was diagnosed to have mild, AHI 13.0, obstructive sleep apnea- hypopnea syndrome and returned today for CPAP therapy one month follow-up. Sleep Study - Results Type of Sleep Study: Polysomnography Prior sleep studies: Yes Year and Where: [facility] 2016 CPAP Compliance Data - Data Reviewed with Patient Average duration of nightly device use: 6 HRS 23 MIN Compliance rate %: 80 (02/19/2022-03/20/2022; 25/30 days used) Current pressure setting (cmH2O): 8-12 Average residual AHI: 2.1 Central apnea: 0.5 Obstructive apnea: 1.1 Average large leak: 10.3 lpm Subjective Missed days of use due to: reports: other (power outage; babysitting) Patient concerns: reports: other (wakes up in middle of night with RAYO; seeing neurologist for RAYO all the time). denies: aerophagia, mask discomfort, air blowing in eyes, mask leak noise, condensation in mask/hose, nasal congestion, dry mouth, nose, throat, epistaxis Observed to snore while using device: No Current pressure setting perceived as: comfortable On therapy, patient: reports: being more awake and alert during the day, more rested overall, other (because of headaches cannot really tell). denies: drowsiness while driving Initial [place] Sleepiness Scale score: 10 (02/08/2022) Current [place] Sleepiness Scale score: 4 (03/21/22) Allergies and Home Medications Drug allergies reviewed: Yes (Cipro, levofloxacin) Home medication list reviewed: Yes (propanolol 80 mg 1 daily for RAYO) Allergy and home medication list: Allergies ciprofloxacin [From Cipro] Allergy (Verified 02/14/22 14:48) Anaphylaxis b/l muscle atropy over entire body (2011) levofloxacin Allergy (Verified 02/14/22 14:48) Anaphylaxis Review of Systems Review of systems same as previous: Yes (no changes) Physical Exam Vital signs obtained and entered by: FELI Hernández MA Blood Pressure: 150/84 (LEFT ARM) Cuff size: regular Heart Rate: 60 O2 Saturation: 98 Height: 5 ft 6 in Weight: 158 lb 9.6 oz Body Mass Index: 25.6 BMI Classification: Overweight Impression and Plan 1. Obstructive Sleep Apnea-Hypopnea Syndrome, mild, with good treatment compliance and good apnea control. On CPAP therapy, the patient has better sleep quality and is more rested overall. Patient has an ResMed Airsense Autoset for Her that she received in 06/2016. The patients CPAP is over 5 years old and of reasonable use. Thus, the CPAP will be updated. A DWO prescription will be made. Compliance guidelines for new device and follow up discussed. I will have my employment coordinator inform of DME options. A DWO prescription will then be made. Patient advised to contact this office if further supply problems. Patient's apnea severity and rationale for treatment to reduce apnea, improve sleep quality and reduce cardiovascular and cerebrovascular events was reviewed. I also reviewed the benefit of consistent device use of CPAP for hypertension and headaches. * Continue auto CPAP pressure at 8-12 cmH2O * Transfer DME * Update machine * Update supplies * Notify me if snoring with mask or feeling that the pressure is too much or too little * Call this office if any problems using CPAP * Return for follow up one month after obtaining new device, or sooner if concerns arise Counseling Topics: Spare mask Visit Type: In Office Time Spent with Patient (minutes): 22 Provider Statement: I spent 100% of the Face to Face Visit with the patient with greater than 50% spent counseling the patient and coordination of care.
== END 2022-03-21 08:28 | disposition home or self-care (01) ==
LOC: SC 08:27
PROVIDERS: ATTEND Nurse Practitioner Family
DX: G47.33 Obstructive sleep apnea (adult) (pediatric) (principal)
CPT/HCPCS: 99212; 99213

== ENCOUNTER 2022-03-29 16:35 | Outpatient (CLI) | payer OTHER ==
--- NOTE | 2022-03-29 20:24 | XRAY Report ---
PROCEDURE: Shoulder 3 View RT INDICATIONS: RIGHT SHOULDER PAIN TECHNIQUE: 4 views of the shoulder were acquired. COMPARISON: None. FINDINGS: Bones: No fractures or dislocations. No suspicious bony lesions. Visualized ribs appear intact. Soft tissues: No suspicious soft tissue calcifications. IMPRESSION: Unremarkable right shoulder radiograph Reviewed by: Mick Mcmillan MD on 03/29/2022 7:23 PM [place] Approved by: Mick Mcmillan MD on 03/29/2022 7:23 PM [place] Station ID: [id number]
== END 2022-03-29 16:36 | disposition home or self-care (01) ==
LOC: DI.WOS 16:35
PROVIDERS: ATTEND Physician Assistant Surgical
DX: Z09 Encounter for follow-up examination after completed treatment for conditions other than malignant neoplasm (principal); Z87.39 Personal history of other diseases of the musculoskeletal system and connective tissue

== ENCOUNTER 2023-01-17 21:33 | Emergency (ER) | payer OTHER ==
[2023-01-17 22:22] LABS: BILIRUBIN,URINE NEGATIVE (NEGATIVE); GLUCOSE, URINE (UA) NEGATIVE (NEGATIVE); KETONES,URINE (UA) TRACE mg/dL (NEGATIVE); LEUKOCYTE ESTERASE, URINE NEGATIVE (NEGATIVE); NITRITE,URINE NEGATIVE (NEGATIVE); OCCULT BLOOD,URINE MODERATE (NEGATIVE); PROTEIN,URINE NEGATIVE (NEGATIVE); UROBILINOGEN,URINE 1 (NORMAL) E.U./dL (NORMAL)
[2023-01-17 22:23] LABS: CLARITY,URINE CLEAR (CLEAR)
[2023-01-17 22:28] LABS: BACTERIA,URINE Few /HPF (None Seen); RBC,URINE 0-5 /HPF (0-5); SQUAMOUS EPITHELIAL CELL,UR FEW Squamous (<= Few); WBC,URINE 0-3 /HPF (0-5)
[2023-01-17 22:40] LABS: BASOPHILS % (AUTO) 0.5 %; EOSINOPHILS # (AUTO) 0.1 10^3/uL (0.0-0.7); EOSINOPHILS % (AUTO) 1.8 %; HCT - HEMATOCRIT 39.2 % (37.0-47.0); HGB - HEMOGLOBIN 13.2 g/dL (12.0-16.0); LYMPHOCYTES # (AUTO) 1.9 10^3/uL (1.5-3.5); LYMPHOCYTES % (AUTO) 30.7 %; MEAN CORPUSCULAR HEMOGLOBIN 29.5 pg (27.0-31.0); MEAN CORPUSCULAR HGB CONC 33.7 g/dL (32.0-36.0); MEAN CORPUSCULAR VOLUME 87.5 fL (81.0-99.0); MEAN PLATELET VOLUME 9.7 fL (7.9-10.8); MONOCYTES # (AUTO) 0.6 10^3/uL (0.0-1.0); MONOCYTES % (AUTO) 8.8 %; NEUTROPHILS # (AUTO) 3.6 10^3/uL (1.5-6.6); NEUTROPHILS % (AUTO) 57.9 %; PLT - PLATELET COUNT 201 10^3/uL (130-450); RED BLOOD COUNT 4.48 10^6/uL (4.20-5.40); RED CELL DISTRIBUTION WIDTH 12.2 % (12.0-15.0); WHITE BLOOD COUNT 6.3 x10^3/uL (4.8-10.8)
[2023-01-17 22:58] LABS: ALBUMIN 4.1 g/dL (3.2-5.5); ALBUMIN/GLOBULIN RATIO 1.4 (1.0-2.2); BILIRUBIN,TOTAL 0.9 mg/dL (0.2-1.0); CALCIUM 9.3 mg/dL (8.5-10.3); CREATININE 1.4 mg/dL (0.6-1.3); POTASSIUM 3.4 mmol/L (3.5-4.5); TOTAL PROTEIN 7.1 g/dL (6.4-8.9)
[2023-01-17] MEDS ORDERED: SODIUM CHLORIDE 0.9% 1,000 ML IV STA (23:24)
[2023-01-17] MEDS ORDERED: KETOROLAC 30 MG/ML VIAL IVP STA (23:24)
--- NOTE | 2023-01-18 01:57 | CT Report ---
PROCEDURE: ABDOMEN/PELVIS W INDICATIONS: RT flank pain CONTRAST: Omni 300 100ml TECHNIQUE: After the administration of IV contrast, 5 mm thick sections acquired from the diaphragms to the symp hysis. 5 mm thick coronal and sagittal reformats were acquired. For radiation dose reduction, the f ollowing was used: automated exposure control, adjustment of mA and/or kV according to patient size. COMPARISON: 02/23/2018 FINDINGS: Image quality: Good Lower chest: Lung bases are unremarkable. Heart size is within normal limits. No hiatal hernia. Solid organs: The liver appears unremarkable. Suspected regional steatosis. Cholecystectomy clips. No pathologic dilation of the biliary system or pancreatic duct. Possible divisum anatomy. No splenomeg tonya. No adrenal nodules. No hydronephrosis. No calcified stone is apparent on this contrast enhanced study. Vessels and lymph nodes: The main portal vein is patent. No abdominal aortic aneurysm or pathologic l ymph nodes by size criteria. Bowel and peritoneum: No evidence of small bowel obstruction. No intra-abdominal abscess or pathologi c ascites. There are colonic diverticula. Appendix appears nondilated. Body wall: Unremarkable Pelvis: No calcified bladder stones. Hysterectomy. Bones: No acute or suspicious osseous finding. IMPRESSION: No acute abnormality identified in the abdomen or pelvis. No hydronephrosis. Nondilated appendix. Oth er findings as above. Reviewed by: Saud Kim MD on 01/18/2023 1:55 AM PDT Approved by: Saud Kim MD on 01/18/2023 1:55 AM PDT Station ID: [id number]
--- NOTE | 2023-01-18 02:03 | ED Physician Documentation ---
History of Present Illness - Stated complaint Stated Complaint: ABD PX - Chief complaint Chief Complaint: Abd Pain - Additonal information Additional information: Patient 63-year-old female with past medical significant for cholecystectomy p resenting with 2-week history right upper quadrant abdominal pain. Denies trauma to this area. Reports pain is constant, worse with physical palpation or movement. No associated nausea vomiting or diarrhea. Review of Systems Constitutional: denies: Fever Eyes: denies: Loss of vision Ears: denies: Loss of hearing Nose: denies: Rhinorrhea / runny nose Throat: denies: Dental pain / toothache Cardiac: denies: Chest pain / pressure GI: reports: Abdominal Pain. 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: Endometriosis, Fibroids, 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 : None HEENT: None Psych: None Musculoskeletal: None Derm: None - Past Surgical History Past Surgical History: Yes /FILAMENT CUTTER: Tubal ligation, Hysterectomy, Mastectomy - Present Medications Home Medications: Ambulatory Orders Medication Instructions Recorded Confirmed Losartan [Cozaar] See Rx Instructions .ROUTE .COMPLEX 02/14/22 03/21/22 hydroCHLOROthiazide [Hydrodiuril] See Rx Instructions .ROUTE .COMPLEX 02/14/22 03/21/22 - Allergies Allergies/Adverse Reactions: Allergies Allergy/AdvReac Type Severity Reaction Status Date / Time ciprofloxacin [From Cipro] Allergy Anaphylaxis Verified 01/17/23 21:45 levofloxacin Allergy Anaphylaxis Verified 01/17/23 21:45 - Social History Does the pt smoke?: No Smoking Status: Never smoker Does the pt drink ETOH?: Yes Does the pt have substance abuse?: No - Immunizations Immunizations are current?: Yes - POLST Patient has POLST: No PD ED PE NORMAL - General General: Alert and oriented X 3 - HEENT HEENT: Atraumatic - Neck Neck: Supple, no meningeal sign - Respiratory Respiratory: No respiratory distress - Abdomen Abdomen: Other (Right upper quadrant tenderness without guarding, rebound, rigidity.). No: Non tender Results - Vitals Vitals: Vital Signs - 24 hr 01/17/23 01/18/23 01/18/23 21:34 00:00 01:48 Temperature 36.9 C Heart Rate 87 63 57 L Respiratory 18 18 18 Rate Blood Pressure 137/79 H 139/86 H O2 Saturation 98 99 100 Oxygen O2 Source Room air - Labs Labs: Laboratory Tests 01/17/23 01/17/23 01/17/23 21:45 22:30 22:30 WBC 6.3 RBC 4.48 Hgb 13.2 Hct 39.2 MCV 87.5 MCH 29.5 MCHC 33.7 RDW 12.2 Plt Count 201 MPV 9.7 Neut # (Auto) 3.6 Lymph # (Auto) 1.9 [place] # (Auto) 0.6 Eos # (Auto) 0.1 Baso # (Auto) 0.0 Absolute Nucleated RBC 0.00 Nucleated RBC % 0.0 Sodium 139 Potassium 3.4 L Chloride 101 Carbon Dioxide 29 Anion Gap 9.0 BUN 21 H Creatinine 1.4 H Estimated GFR (MDRD) 46 L Glucose 119 H Calcium 9.3 Total Bilirubin 0.9 AST 20 ALT 13 Alkaline Phosphatase 71 Total Protein 7.1 Albumin 4.1 Globulin 3.0 Albumin/Globulin Ratio 1.4 Lipase 31 Urine Color YELLOW Urine Clarity CLEAR Urine pH 6.0 Ur Specific [place] 1.025 Urine Protein NEGATIVE Urine Glucose (UA) NEGATIVE Urine Ketones TRACE Urine Occult Blood MODERATE H Urine Nitrite NEGATIVE Urine Bilirubin NEGATIVE Urine Urobilinogen 1 (NORMAL) Ur Leukocyte Esterase NEGATIVE Urine RBC 0-5 Urine WBC 0-3 Ur Squamous Epith Cells FEW Squamous Urine Bacteria Few Ur Microscopic Review INDICATED Urine Culture Comments NOT INDICATED PD Medical Decision Making - ED course Complexity details: reviewed results, re-evaluated patient, considered differential, d/w patient ED course: Patient 63-year-old female presented to the emergency department with right upper quadrant abdominal pain. Afebrile, he medically stable on arrival to the emergency department. Labs all very reassuring, no indicationsHepatic or biliary dysfunction. Patient does have history of cholecystectomy. Did obtain CT of the abdomen pelvis which was similarly benign. Will discharge at this time for follow-up with primary care as needed. Clear return precautions given. Departure - Departure Disposition: 01 Home, Self Care Clinical Impression: Abdominal pain Qualifiers: Abdominal location: right upper quadrant Qualified Code(s): R10.11 - Right upper quadrant pain Instructions: ED Abdominal Pain Female Non-Specific Abdominal Pain Comments: Thank you for allowing us to care for you today at [facility]. Today in the emergency department your evaluated for any possible dangerous or life-threatening medical emergency. All the testing performed in the emergency department today including your lab work and the CT scan of your abdomen and pelvis are all very reassuring. There is no dangerous or life-threatening cause for your symptoms identified in the emergency room today however I do want you to follow-up carefully your primary care doctor. You can take Motrin and Tylenol at home for pain control as needed. Ice packs or heat packs to your abdomen may also be very helpful to help with your symptoms. If it anytime you develop any new or worsening symptoms please not hesitate to return.
[2023-01-18 02:21] VITALS: BP 141/78; O2SAT 98
[2023-01-18] MEDS ORDERED: iohexoL-300 100 ML VIAL IVP ONE (06:12)
== END 2023-01-18 02:33 | disposition home or self-care (01) ==
LOC: ED 21:33
DX: R10.11 Right upper quadrant pain (principal)
CPT/HCPCS: 36415; 74177; 80053; 81001; 83690; 85025; 96374; 99283; 99284; Q9967; 81003; 87086

== ENCOUNTER 2023-10-21 10:29 | Outpatient (CLI) | payer OTHER ==
--- NOTE | 2023-10-21 20:23 | XRAY Report ---
PROCEDURE: Cervical Spine 2-3V INDICATIONS: CERVICAL RADICULOPATHY TECHNIQUE: 3 view(s) of the cervical spine were acquired. COMPARISON: None. FINDINGS: Bones: No fractures or dislocations to the T1 level. The lateral masses of C1 appear intact on the odontoid view. No suspicious bony lesions. Diffuse cervical spondylitic change. Disc height loss an d uncovertebral joint hypertrophy at C3-C4 though C6-C7. Multilevel facet arthropathy Soft tissues: No prevertebral soft tissue swelling. IMPRESSION: Cervical spondylosis. Reviewed by: Gerald Kraft MD on 10/21/2023 8:22 PM PDT Approved by: Gerald Kraft MD on 10/21/2023 8:22 PM PDT Station ID: [id number]
== END 2023-10-21 10:30 | disposition home or self-care (01) ==
LOC: DI.N 10:29
PROVIDERS: ATTEND Family Medicine
DX: M47.812 Spondylosis without myelopathy or radiculopathy, cervical region (principal)